=== PATIENT | female | born 1960 | race Caucasian/White ===

== ENCOUNTER 2017-11-16 07:30 | Inpatient (IN) | payer BC ==
--- NOTE | 2017-11-04 16:40 | HP ---
HISTORY AND PHYSICAL: DATE OF OFFICE VISIT: 11/03/17 DATE OF PROPOSED PROCEDURE: 11/16/17 SURGEON: Phyllis Soliman MD.* (DICTATED BY BRANDON BEDOYA) PROCEDURE: Right total knee arthroplasty CHIEF COMPLAINT: Right knee pain. HISTORY OF PRESENT ILLNESS: Ms. Maurer is a 57-year-old female with complaints of right knee pain. X-ray shows endstage osteoarthritis and she has failed conservative management. She has elected to proceed with a right total knee arthroplasty which is scheduled for 11/16/[address] Soliman. PAST MEDICAL HISTORY: Hypothyroidism, high cholesterol, hypertension and asthma. PAST SURGICAL HISTORY: Complete thyroidectomy, Robby fundoplication, C- section x2, kidney donor surgery, hysterectomy and right knee arthroscopy. MEDICATIONS: 1. Ventolin inhaler. 2. Levothyroxine 112 mcg daily. 3. Lorane thyroid 30 mg daily. 4. Losartan potassium 25 mg daily. 5. Atorvastatin calcium 25 mg q.h.s. 6. Probiotic. 7. Multivitamin. 8. Vitamin D3. 9. Cyclobenzaprine as needed. ALLERGIES: SULFA ANTIBIOTICS. FAMILY HISTORY: Coronary artery disease, COPD and stroke. SOCIAL HISTORY: She is a 57-year-old female lives with her . She does not smoke or use drugs; uses occasional alcohol. REVIEW OF SYSTEMS: A complete 14-point review of systems was reviewed with the patient, it is positive for hypothyroidism, asthma, and she donated a kidney last February. She denies history of DVT, hepatitis, HIV or anesthesia problems. PHYSICAL EXAMINATION GENERAL: She is well developed, well nourished, in no acute distress. VITAL SIGNS: She stands 5 feet 2 inches tall, weighs 173 pounds. Her blood pressure is 138/84, her heart rate is 60. HEENT: Normocephalic, atraumatic. NECK: Supple. No palpable lymph nodes. PULMONARY: The lungs are clear to auscultation. CARDIO: Regular rate and rhythm. Strong S1, S2. ABDOMEN: Soft, nontender, nondistended. NEUROLOGIC: She is alert and oriented x3. Cranial nerves II through XII are intact. MUSCULOSKELETAL: Right lower extremity, there is no open wounds or abrasions. There is a moderate joint effusion, she has some tenderness over the medial lateral joint line. Range of motion is 10 to 125 degrees with patellar femoral crepitus, no varus or valgus instability, 2+ dorsalis pedis pulses, 5/5 lower extremity strength and intact sensation. ASSESSMENT AND PLAN: Ms. Maurer is a 57-year-old female with complaints of right knee pain secondary to end-stage osteoarthritis. She has failed conservative management and elected to proceed with a right total knee arthroplasty which is scheduled for 11/16/[address] Soliman discussed the risks and benefits of the surgery at today's visit and all of her questions were answered. She will follow up with Dr. Soliman 2 weeks after the surgery. BRANDON BEDOYA [id number]/CPS #: [id number] MTDD
[~2017-11-16 07:30] MED LIST: Acetaminophen IV 1GM/100ML * 1,000 MG/100 ML VIAL IVPB ONE; Buffered Lidocaine 0.9% SYRIN* 5 ML/SYR SYRINGE INTRADERM ONE; Dexamethasone IV* 4 MG/ML 1 ML (4 MG) IV SLOW PU ONE; Famotidine IV* 10 MG/ML 2 ML (20 mg) IV ONE
[2017-11-16] MEDS ORDERED: Dexamethasone IV* 4 MG/ML 1 ML (4 MG) ONE (08:35)
[2017-11-16] MEDS ORDERED: Famotidine IV* 10 MG/ML 2 ML (20 mg) ONE (08:35)
[2017-11-16] MEDS ORDERED: ceFAZolin 2 GM PREMIX (*) 2 GM/50 ML BAG IVPB ONE (08:35)
[2017-11-16] MEDS ORDERED: Acetaminophen IV 1GM/100ML * 100 ML ONE (09:15)
[2017-11-16] MEDS ORDERED: Bupivacaine 0.5% SDV PF* 30ML VIAL ONE ×2 (09:25→10:36)
[2017-11-16] MEDS ORDERED: Ondansetron ODT TAB* 4 MG PO ONE (09:30)
[2017-11-16] MEDS ORDERED: Midazolam* 1 MG/ML 5 ML VIAL (5 MG) ONE ×2 (10:13→11:15)
[2017-11-16] MEDS ORDERED: Bupivacaine 0.5% PF 10 ML VIAL INJ ONE (10:13)
[2017-11-16] MEDS ORDERED: Lidocaine 0.5%* 50 ML SDV ONE (10:13)
[2017-11-16] MEDS ORDERED: fentaNYL* 50 MCG/ML 2 ML VIAL (100 MCG VIAL) ONE ×2 (10:13→17:27)
[2017-11-16] MEDS ORDERED: Propofol* 10 MG/ML 20 ML BTL IV PUSH ONE (10:13)
[2017-11-16] MEDS ORDERED: Ondansetron ODT TAB* 4 MG ONE (10:32)
[2017-11-16] MEDS ORDERED: ROPIVACAINE 5 MG/ML 30 ML BTL (0.5%) ONE (10:38)
[2017-11-16] MEDS ORDERED: oxyCODONE TAB* 5 MG TAB PO PRN (12:03)
[2017-11-16] MEDS ORDERED: Scopolamine 1.5 mg* PATCH TRANSDERM PRN (12:03)
[2017-11-16] MEDS ORDERED: Naloxone* 0.4 MG/ML 1 ML VIAL IV PRN (12:03)
[2017-11-16] MEDS ORDERED: HYDROmorphone INJ* 1 MG/ML CARPUJECT SYRINGE IV PRN (12:03)
[2017-11-16] MEDS ORDERED: fentaNYL* 50 MCG/ML 2 ML VIAL (100 MCG VIAL) IV PRN (12:03)
[2017-11-16] MEDS ORDERED: Ondansetron INJ* 2 MG/ML VIAL IV PRN ×2 (12:03→13:42)
[2017-11-16] MEDS ORDERED: DiMENhydriNATE IV* 50 MG/ML VIAL IV PUSH PRN (12:03)
[2017-11-16] MEDS ORDERED: Bisacodyl SUPP* 10 MG SUPP PR PRN (13:42)
[2017-11-16] MEDS ORDERED: Magnesium Hydroxide LIQ* 30 ML UDC PO PRN (13:42)
[2017-11-16] MEDS ORDERED: diPHENhydraMINE IV* 50 MG/ML 1 ml VIAL (BENADRYL) IV PRN (13:42)
--- NOTE | 2017-11-16 14:06 | RAD ---
HISTORY: Status post right knee arthroplasty COMPARISONS: October 11, 2017 VIEWS: 2, Frontal and lateral views of the right knee FINDINGS: BONE DENSITY: Normal. BONES: The patient is status post right knee arthroplasty. There is no hardware failure or osteolysis. JOINTS: The patient is status post right knee arthroplasty. ALIGNMENT: There is no dislocation. SOFT TISSUES: A surgical drain is noted OTHER FINDINGS: None. IMPRESSION: STATUS POST RIGHT KNEE ARTHROPLASTY
[2017-11-16] MEDS ORDERED: Warfarin TAB(*) 6 MG PO ONE ×2 (17:00→20:00)
[2017-11-16] MEDS ORDERED: oxyCODONE TAB* 5 MG TAB ONE (17:27)
[2017-11-16] MEDS ORDERED: Albuterol 2.5 MG/3 ML NEB.SOL* (0.083%) INH PRN (17:46)
[2017-11-16] MEDS: oxyCODONE/Acetamin 5/325 MG* TAB PO PRN (19:51)
[2017-11-16] MEDS: Atorvastatin* 20 MG TAB PO SCH (20:13)
[2017-11-16] MEDS: Morphine VIAL* 4 MG/ML VIAL (1 ml vial) IV PRN (21:24)
[2017-11-16] MEDS: ceFAZolin 1 GM in Dextrose (*) 1 GM/50 ML BAG IVPB SCH (21:30)
[2017-11-16] MEDS: Docusate CAP* 100 MG PO SCH (21:40)
[2017-11-16] MEDS: Gabapentin CAP(*) 100 MG PO SCH (21:40)
[2017-11-16] MEDS: Magnesium Hydroxide LIQ* 30 ML UDC PO SCH (21:40)
[2017-11-17] MEDS: oxyCODONE/Acetamin 5/325 MG* TAB PO PRN ×5 (03:23→21:26)
--- NOTE | 2017-11-17 03:51 | CONS ---
CC: Phyllis Soliman MD * CONSULTATION REPORT: DATE OF CONSULTATION: 11/16/17 CONSULTING PROVIDER: Phyllis Soliman MD MY ATTENDING WHILE IN THE HOSPITAL: Estrella Arreola DO REASON FOR CONSULTATION: Comanagement of comorbid medical conditions. HISTORY OF PRESENT ILLNESS: Ms. Maurer is a 57-year-old female with past medical history significant for hypothyroidism, status post complete thyroidectomy, hypertension, asthma, hyperlipidemia, GERD, status post Robby fundoplication, and osteoarthritis, who presents for a right total knee arthroplasty after failure of conservative treatment. The patient had an estimated blood loss of less than 200 mL intraop and had spinal anesthesia with a nerve block with delayed recovery in the motor function of her feet, which are now functioning. The patient is in currently a 3/10 pain when moving her quadriceps muscle on her right thigh, which she believes to be pain related to the incision. The patient had one episode of dizziness when moving around in bed, not kareen vertigo, but lightheadedness. This has not recurred. The patient has not had any recent falls or illnesses. The patient recently had her levothyroxine dose decreased to 88 mcg and her valsartan dose increased to 25 mg and had gabapentin started for neuropathic pain and hot flashes. The patient has not used her Ventolin inhaler recently and rarely ever has to use it. The patient denies any chest pain, shortness of breath, nausea, vomiting or abdominal pain. The patient has issues with chronic constipation. PAST MEDICAL HISTORY: Hypothyroidism, hyperlipidemia, hypertension, asthma, osteoarthritis, multinodular goiter, status post thyroidectomy, GERD, status post Robby fundoplication, low back pain with possible degenerative disk disease. PAST SURGICAL HISTORY: Complete thyroidectomy, Robby fundoplication, , kidney donor surgery with implantation of donor kidney, hysterectomy, and right knee arthroscopy. MEDICATIONS: 1. Ventolin inhaler 2 puffs inhalation q.4 hours as needed. 2. Levothyroxine 88 mcg p.o. daily. 3. Holdrege Thyroid pork 30 mg p.o. q.a.m. 4. Atorvastatin 20 mg p.o. q.h.s. 5. Losartan 25 mg p.o. daily. 6. Probiotic. 7. Multivitamin. 8. Vitamin D3 of 2000 units p.o. q.a.m. 9. Cyclobenzaprine 10 mg p.o. q.p.m. as needed. 10. Gabapentin 100 mg p.o. b.i.d. ALLERGIES: SULFA ANTIBIOTICS. FAMILY HISTORY: The patient's mother of stroke. The patient's father is alive and has coronary artery disease, COPD, and a pacemaker. The patient's brother has CLL. The patient's sister has gastroparesis. The patient's has another sister who is healthy. SOCIAL HISTORY: The patient is a 57-year-old female, lives with her . She does not smoke or use drugs. Uses occasional alcohol. 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 The patient's surrogate decision makers would be her , Timo Maurer or her daughter Marlee Pizarro. REVIEW OF SYSTEMS: A 14-point review of systems was reviewed and is negative except as above. PHYSICAL EXAM: General: The patient is a 57-year-old female who appears stated age and is sitting comfortably in the bed, in no acute distress. Vital Signs: Temperature 98.1, pulse rate 98, respiratory rate 21, oxygen saturation 95% on room air, blood pressure 113/85. HEENT: Head normocephalic, atraumatic. Sclerae anicteric. No conjunctival injection. Nasal mucosa moist. Oral mucosa moist. No pharyngeal erythema, discharge or exudate. Neck : Supple, nontender, no lymphadenopathy, no carotid bruits auscultated, and no JVD. Cardiac: Regular rate and rhythm. No clicks, murmurs, gallops or rubs. Pulses are 2+ in bilateral dorsalis pedis, posterior tibialis and radial areas. No tenderness in bilateral calves. No lower extremity edema noted. Respiratory: Clear to auscultation bilaterally. No wheezes, rales or rhonchi. Good air exchange bilaterally. Abdomen: Soft, nontender, nondistended. Bowel sounds present and hypoactive in all 4 quadrants. No hepatosplenomegaly. No abdominal bruits auscultated. Genitourinary: No suprapubic tenderness. Skin: Clean, dry, intact. No rash. Right knee incision covered by a bulky dressing with a hemovac drain producing bloody drainage. Neuro: Cranial nerves II through XII intact. Strength 5/5 in bilateral upper extremities, 4/5 strength in bilateral lower extremities, symmetrical bilaterally. Reflexes are 1+ in bilateral biceps, left side patellar and Achilles areas bilaterally. Psychiatric: Pleasant and cooperative. LABORATORY DATA: Preoperative white blood cell count 6.9, red blood cell count 4.1, hemoglobin 12.5, hematocrit 37, platelet count 232,000. INR 0.9, APTT 30.5. Sodium 139, potassium 4.2, chloride 103, carbon dioxide 30, anion gap 6, BUN 24, creatinine 1.18, glucose 89, calcium 9.5, bilirubin 0.5, AST 25, ALT 27 , alkaline phosphatase 74, protein 7.3, albumin 4.3, globulin 3.0, triglycerides 142, cholesterol 127, LDL cholesterol 56, HDL cholesterol 42.9. TSH 0.1. IMPRESSION AND PLAN: Ms. Maurer is a 57-year-old female with past medical history significant for hypertension, hypothyroidism due to complete thyroidectomy, asthma, and osteoarthritis, who presents for a right total knee arthroplasty and is stable postoperatively. 1. Postoperative state. Right total knee arthroplasty management per primary orthopedic team. The patient should have an aggressive bowel regimen due to her history of chronic constipation. The patient's pain is currently controlled. Pain control per primary team. Monitor hemoglobin and hematocrit. PT and OT. The patient requested home PT at discharge. 2. Hypertension. Though the patient is currently normotensive, we will continue fluids overnight and resume the patient's losartan in the morning with hold parameters. The ongoing need for this medication should be assessed outpatient as the patient's creatinine increased between 11/17/16 to 03/20/17 from 0.85 to 1.37 and stayed stable around 1.16 on the last two readings in 2018. If the patient was started on losartan for preservation of kidney function, this level of increase in creatinine is associated with poor outcomes and should be assessed. We will monitor creatinine while inpatient. 3. Hyperlipidemia. Continue atorvastatin. 4. Hypothyroidism. Continue levothyroxine and Holdrege Thyroid. The patient's TSH should be rechecked in 6 weeks after the recent decrease in levothyroxine dose. 5. Asthma. The patient will have a Ventolin nebulizer as needed while in the hospital. The patient should resume her Ventolin inhaler at home. 6. FEN. The patient will have regular unrestricted diet and fluids at 75 mL an hour. 7. DVT prophylaxis. Lovenox to warfarin per primary team. 8. Code status. The patient will be a full code. The patient's surrogate decision makers will be her , Timo Maurer and her daughter Marlee Pizarro as above. 9. Disposition. Per primary team. TIME SPENT: Approximately 60 minutes was spent on this consultation, 30 of which was spent [id number] with the patient obtaining history and physical and discussing treatment plan. Plan was discussed with my attending, Dr. Estrella Arreola, and she is in agreement. Thank you for this consultation. Feel free to call with any questions. BRANDON CISNEROS [id number]/CPS #: [id number] DIXON
[2017-11-17] MEDS: ceFAZolin 1 GM in Dextrose (*) 1 GM/50 ML BAG IVPB SCH ×2 (04:07→12:03)
[2017-11-17 06:09] LABS: Hematocrit 29 % (35-47); Hemoglobin 9.6 g/dl (12.0-16.0); Mean Platelet Volume 8.7 um3 (7.4-10.4); Platelet Count 180 10^3/ul (150-450)
[2017-11-17 06:14] LABS: INR 0.92 (0.77-1.02)
[2017-11-17 06:26] LABS: EGFR Non-African American 50.8 (>60)
[2017-11-17] MEDS: Docusate CAP* 100 MG PO SCH ×2 (08:50→21:27)
[2017-11-17] MEDS: Losartan TAB* 25 MG PO SCH (08:50)
[2017-11-17] MEDS: Gabapentin CAP(*) 100 MG PO SCH ×2 (08:50→21:27)
[2017-11-17] MEDS: Magnesium Hydroxide LIQ* 30 ML UDC PO SCH ×2 (08:51→21:28)
[2017-11-17] MEDS: Vitamin THERAPEUTIC TAB PO SCH (08:51)
[2017-11-17] MEDS: Enoxaparin(*) 30 MG/0.3 ML SYR SUBCUT SCH (11:40)
[2017-11-17] MEDS: oxyCODONE TAB* 5 MG TAB PO PRN ×2 (13:45→18:51)
--- NOTE | 2017-11-17 14:13 | PN ---
Subjective Date of Service: 11/17/17 Interval History: Patient is doing well, minimal pain at rest, significant pain up to 10/10 with activity. Able to ambulate with PT to the bathroom twice. Slight brief lightheadedness on standing without vertigo or presyncope. Patient denies F/C, N /V, abdominal pain, dysuria, CP, SOB. Patient has urinated and is passing flatus but no BM. Family History: Unchanged from Admission Social History: Unchanged from Admission Past Medical History: Unchanged from Admission Objective Active Medications: Albuterol (Ventolin 2.5 Mg/3 Ml Neb.Priscila*) 2.5 mg INH Q4H PRN PRN Reason: SOB/WHEEZING Atorvastatin Calcium (Lipitor*) 20 mg PO QPM [facility] Last Admin: 11/16/17 20:13 Dose: Not Given Bisacodyl (Dulcolax Supp*) [address] DAILY PRN PRN Reason: constipation Cyclobenzaprine HCl (Flexeril Tab*) 5 mg PO TID PRN PRN Reason: SPASMS Diphenhydramine HCl (Benadryl Iv*) 25 mg IV Q6H PRN PRN Reason: itching Docusate Sodium (Colace Cap*) 100 mg PO BID [facility] Last Admin: 11/17/17 08:50 Dose: 100 mg Enoxaparin Sodium (Lovenox(*)) 30 mg SUBCUT Q24H [facility] Last Admin: 11/17/17 11:40 Dose: 30 mg Gabapentin (Neurontin Cap(*)) 100 mg PO BID [facility] Last Admin: 11/17/17 08:50 Dose: 100 mg Lactated Ringer's (Lactated Ringers 1000 Ml Bag*) 1,000 mls @ 100 mls/hr IV PER RATE [facility] Last Admin: 11/17/17 04:05 Dose: 100 mls/hr Lactulose (Lactulose*) 30 ml PO Q6H PRN PRN Reason: constipation Losartan Potassium (Cozaar Tab*) 25 mg PO DAILY [facility] Last Admin: 11/17/17 08:50 Dose: 25 mg Magnesium Hydroxide (Milk Of Magnesia Liq*) 30 ml PO BID [facility] Last Admin: 11/17/17 08:51 Dose: 30 ml Magnesium Hydroxide (Milk Of Magnesia Liq*) 30 ml PO Q6H PRN PRN Reason: constipation Morphine Sulfate (Morphine Vial*) 2 mg IV Q2H PRN PRN Reason: PAIN - UNCONTROLLED Last Admin: 11/16/17 21:24 Dose: 2 mg Multivitamins (Theragran Tab*) 1 tab PO DAILY [facility] Last Admin: 11/17/17 08:51 Dose: 1 tab Ondansetron HCl (Zofran Inj*) 4 mg IV Q6H PRN PRN Reason: nausea Oxycodone HCl (Roxycodone Tab*) 10 mg PO Q4H PRN PRN Reason: PAIN - SEVERE Last Admin: 11/17/17 13:45 Dose: 10 mg Oxycodone/Acetaminophen (Percocet 5/325 Tab*) 2 tab PO Q4H PRN PRN Reason: PAIN Last Admin: 11/17/17 11:39 Dose: 2 tab Oxycodone/Acetaminophen (Percocet 5/325 Tab*) 1 tab PO Q4H PRN PRN Reason: PAIN Pharmacy Profile Note (Coumadin Daily Reminder*) 1 note FOLLOW UP 1700 [facility] Pharmacy Profile Note (Scopolamine Patch Remove*) 1 note PATCH OFF Q72H [facility] Scopolamine (Transderm-Scop 1.5 Mg Patch*) 1 patch TRANSDERM Q72H PRN PRN Reason: Nausea/Vomiting Vital Signs - 8 hr 11/17/17 11/17/17 11/17/17 07:15 07:34 07:41 Temperature 97.7 F Pulse Rate 77 Respiratory 16 18 18 Rate Blood Pressure 119/59 (mmHg) O2 Sat by Pulse 100 100 Oximetry 11/17/17 11/17/17 11/17/17 08:50 10:10 11:21 Temperature 96.8 F Pulse Rate 73 Respiratory 18 16 16 Rate Blood Pressure 132/78 (mmHg) O2 Sat by Pulse 100 Oximetry 11/17/17 11/17/17 11/17/17 11:23 11:39 13:45 Temperature Pulse Rate Respiratory 18 18 18 Rate Blood Pressure (mmHg) O2 Sat by Pulse Oximetry 11/17/17 13:47 Temperature Pulse Rate Respiratory 18 Rate Blood Pressure (mmHg) O2 Sat by Pulse Oximetry Oxygen Devices in Use Now: None Appearance: Patient is a 57yo female who appears stated age and is sitting in the bed in [facility]. Eyes: No Scleral Icterus, PERRLA Ears/Nose/Mouth/Throat: NL Teeth, Lips, Gums, Clear Oropharnyx, Mucous Membranes Moist Neck: NL Appearance and Movements; NL JVP, Trachea Midline Respiratory: Symmetrical Chest Expansion and Respiratory Effort, Clear to Auscultation Cardiovascular: NL Sounds; No Murmurs; No JVD, RRR, No Edema Abdominal: NL Sounds; No Tenderness; No Distention, No Hepatosplenomegaly Lymphatic: No Cervical Adenopathy Extremities: No Edema, No Clubbing, Cyanosis Skin: No Nodules or Sclerosis, - - Right knee dressing CDI. Neurological: Alert and Oriented x 3, NL Sensation, NL Muscle Strength and Tone , - - CN II-XII intact. Result Diagrams: 11/17/17 05:28 11/17/17 05:28 Assess/Plan/Problems-Billing Assessment: Patient is a 57yo female with a PMH significant for HTN, hypothyroidism, who is S/P RTKA and is doing well. - Patient Problems (1) Post-operative state Current Visit: Yes Status: Acute Code(s): Z98.890 - OTHER SPECIFIED POSTPROCEDURAL STATES SNOMED Code(s): 85647646 Comment: POD#1 from RTKA. Management per Ortho. H/H stable. Vizcaino removed without retention. Passing flatus. Moderate pain control. PT/OT (2) Hypertension Current Visit: Yes Status: Acute Code(s): I10 - ESSENTIAL (PRIMARY) HYPERTENSION SNOMED Code(s): 33340128 Comment: Normotensive on home losartan. Will check orthostatics. (3) Hypothyroidism Current Visit: Yes Status: Acute Code(s): E03.9 - HYPOTHYROIDISM, UNSPECIFIED SNOMED Code(s): 73143624 Comment: Continue levothyroxine at home dose. Will need repeat outpatient due to dose change and overmedication. (4) Hyperlipidemia Current Visit: Yes Status: Acute Code(s): E78.5 - HYPERLIPIDEMIA, UNSPECIFIED SNOMED Code(s): 95515134 Comment: Continue lipitor. (5) Asthma Current Visit: Yes Status: Acute Code(s): J45.909 - UNSPECIFIED ASTHMA, UNCOMPLICATED SNOMED Code(s): 990419715 Comment: Albuterol PRN. No signs of exacerbation. (6) DVT prophylaxis Current Visit: Yes Status: Acute Code(s): HMD1092 - SNOMED Code(s): 088607856 Comment: Lovenox to warfarin per Ortho. Status and Disposition: Disposition per Ortho.
--- NOTE | 2017-11-17 15:18 | OP ---
DATE OF OPERATION: 11/16/17 - ROOM #[id number] DATE OF : 56 ATTENDING SURGEON: Phyllis Soliman MD. FUND CONTROLLER: BRANDON Orta. Mr. Ivan did help throughout the procedure with preparation of the leg, wound retraction, manipulation of the knee, and wound closure. ANESTHESIOLOGIST: Dr. Astudillo. ANESTHESIA: Spinal. PRE-OP DIAGNOSIS: Severe endstage degenerative osteoarthritis of the right knee joint. POST-OP DIAGNOSIS: Severe endstage degenerative osteoarthritis of the right knee joint. OPERATIVE PROCEDURE: Right total knee arthroplasty. TOURNIQUET TIME: 46 minutes. COMPLICATIONS: None. ESTIMATED BLOOD LOSS: 300 cc. SPECIMEN: Bone and cartilage from the right knee joint sent to Pathology. HARDWARE USED: This is cemented total knee [employer] hardware. Two packages of Simplex bone cement. For the femur, a size 4 right narrow posterior stabilized Legion Oxinium femoral component. For the tibia, a size 3 right tibial base plate Jeri II. For the insert, an 11-mm posterior stabilized articular insert, size 3-4. For the patella, a 29-mm 3-peg all-poly patella with 7.5 thickness. BRIEF HISTORY/INDICATION: Ms. Maurer is a 57-year-old female with 1 year of increasingly severe right knee pain. Radiographs showed [id number] arthritis. Radiographs showed significant arthritis in both the medial and patello-femoral compartments. She failed conservative treatment with antiinflammatories, pain medications, and physical therapy. Due to continued pain and decreased quality of life, she elected to undergo right total knee arthroplasty. Informed consent was obtained from the patient. She understood the risks of surgery included but were not limited to bleeding, infection, damage to nearby structures, continued pain, need for further surgery, intraoperative fracture, nerve palsy, hardware failure or loosening, knee stiffness, loss of motion, stroke, heart attack, blood clot, and . She wished to proceed. INTRAOPERATIVE FINDINGS: Intraoperatively, the patient was noted to have tricompartmental degenerative osteoarthritis. This was worst in the medial and patellofemoral compartments with full-thickness loss of cartilage. DESCRIPTION OF PROCEDURE: Ms. Maurer was identified in the preanesthesia unit. Her right lower extremity was marked as the correct operative side. Informed consent was signed and placed in the chart. The patient was taken to the operating room and placed under spinal anesthesia. A Vizcaino catheter was placed. Tourniquet was placed on the right thigh. Right lower extremity was prepped and draped in the usual sterile fashion. Preop time-out was made to correctly identify the patient, side, and site. Appropriate perioperative antibiotics were given within 1 hour of incision. Tourniquet was inflated and the total tourniquet time for this procedure was 46 minutes. A 12-cm midline incision was made with a 10 blade and carried down to the extensor mechanism. A new 10 blade was used to make a standard medial parapatellar arthrotomy. The patella was subluxed laterally. Electrocautery was used to subperiosteally elevate the soft tissue off the superomedial tibia to the mid sagittal plane. The knee was flexed up. The anterior horn of the lateral meniscus and ACL were sharply released. A drill was used to enter the distal femur. Intramedullary distal femoral cutting guide was pinned on the distal femur. Oscillating saw was used to make the distal femoral cut. Next, the external rotation guide was pinned on the distal femur. Distal femur was sized to a size 4. Size 4 multi-cutting jig was pinned on the distal femur. Oscillating saw was used to make the appropriate 4 chamfer cuts. The PCL was completely released. The tibia was subluxed anteriorly. The extramedullary tibial cutting guide was pinned on the proximal tibia. Oscillating saw was used to make the proximal tibial cut perpendicular to the mechanical axis of the tibia. The bone was carefully removed. The knee was brought out into full extension. A spacer block had excellent fit. Medial and lateral ligaments were well balanced. Flexion and extension gaps were well balanced. Lamina network professional was placed both medially and laterally. Any remaining meniscus was removed using electrocautery. Curved osteotome was used to remove any posterior osteophytes. The tibial tray and drop farrah were placed to once again confirm a satisfactory tibial cut and this was confirmed. A size 4 narrow right femoral trial was impacted onto the distal femur and had excellent fit. The box for the posterior stabilized implant was prepared using a reamer and box cut osteotome. Size 3 tibial tray with a 9-mm insert trial was placed and the knee was taken through range of motion. The knee had full extension to 130 degrees of flexion. Patello-femoral tracking was satisfactory. The patella was everted. 7 mm of patellar bone and cartilage was carefully removed using an oscillating saw. Patella was sized to a size 29. Three peg holes were drilled through the size 29 guide. A 29 trial patella with 7.5 thickness was placed and the knee was taken through range of motion. There was satisfactory patellofemoral tracking. All trials were removed. The tibia was subluxed anteriorly and sized to a size 3. Proximal tibia was prepared using a size 3 keel punch. All bony cut surfaces were copiously irrigated with sterile saline and dried. Final implants were cemented into place starting with the tibia, followed by the femur and last, the patella. An 11-mm insert trial was placed while the knee was brought out into full extension. Tourniquet was turned down at 46 minutes. The knee was copiously irrigated and electrocautery was used to obtain meticulous hemostasis. Once the cement had fully cured, the insert trial was removed. Any excess cement was removed from around the implants and capsule. Final insert chosen was an 11-mm posterior stabilized articular insert, size 3- 4. This was locked into position on the tibial tray. Stability of the insert was checked and rechecked and noted to be stable. The knee was copiously irrigated with sterile saline. The extensor mechanism was closed over a medium Hemovac drain using interrupted #1 Vicryls. The rest of the incision was closed in a layered fashion using 0 and 2-0 Vicryls. Skin was closed using running 3-0 nylon suture. Sterile Xeroform, 4x4s, and Webril were used to cover the incision. Cold pack and Bryant were placed over this. The patient's anesthesia was reversed without difficulty. She was taken to the PACU in stable condition. Intended weightbearing will be weightbearing as tolerated. Intended DVT prophylaxis will be Coumadin with a Lovenox bridge. [id number]/[facility] #: [id number] DIXON
[2017-11-17] MEDS: Morphine VIAL* 4 MG/ML VIAL (1 ml vial) IV PRN ×2 (16:14→20:23)
--- NOTE | 2017-11-17 16:29 | PN ---
Progress Note - Progress Note Date of Service: 11/17/17 SOAP: Subjective: []Patient seen OOB in chair. Knee pain is well controlled and no leg numbness. Denies CP, SOB, dizziness. Objective: [] Vital Signs Temp 97.5 F 11/17/17 15:29 Pulse 78 11/17/17 15:29 Resp 18 11/17/17 16:18 BP 109/68 11/17/17 15:29 Pulse Ox 100 11/17/17 16:00 Intake & Output 11/16/17 11/17/17 11/17/17 18:59 06:59 18:59 Intake Total 2049 3040 1040 Output Total 950 1850 800 Balance 1100 1190 240 Weight 170 lb Intake: IV Fluids 2049 980 391 LR 2000 980 391 NS 100ML, Cefazolin 2G 50 IVPB 110 49 ABX - CEFAZOLIN 110 49 Oral 1950 600 Output: Urine 800 Vizcaino 950 1850 Other: Estimated Blood Loss <200 Comment Laboratory Last Values Hgb 9.6 g/dl (12.0-16.0) L 11/17/17 05:28 Hct 29 % (35-47) L 11/17/17 05:28 Plt Count 180 10^3/ul (150-450) 11/17/17 05:28 MPV 8.7 um3 (7.4-10.4) 11/17/17 05:28 INR (Anticoag Therapy) 0.92 (0.77-1.02) 11/17/17 05:28 Sodium 138 mmol/L (139-145) L 11/17/17 05:28 Potassium 4.1 mmol/L (3.5-5.0) 11/17/17 05:28 Chloride 106 mmol/L (101-111) 11/17/17 05:28 Carbon Dioxide 28 mmol/L (22-32) 11/17/17 05:28 Anion Gap 4 mmol/L (2-11) 11/17/17 05:28 BUN 17 mg/dL (6-24) 11/17/17 05:28 Creatinine 1.10 mg/dL (0.51-0.95) H 11/17/17 05:28 Est GFR ( Amer) 65.4 (>60) 11/17/17 05:28 Est GFR (Non-Af Amer) 50.8 (>60) 11/17/17 05:28 BUN/Creatinine Ratio 15.5 (8-20) 11/17/17 05:28 Glucose 119 mg/dL (70-100) H 11/17/17 05:28 Calcium 8.7 mg/dL (8.6-10.3) 11/17/17 05:28 General: Well appearing, NAD RLE: Right knee dressing CDI without surrounding erythema. Drain pulled with tip intact and tolerated well by patient. Thigh is soft. DF/PF intact. DP 2+. Sensation intact to light touch distally. BL LE without erythema, edema or palpable cords. Assessment: []POD 1 sp right total knee arthroplasty 11/16 Dr Soliman Plan: []WBAT PT/OT Lovenox bridge to coumadin. Coumadin 6 mg today
[2017-11-17] MEDS: Warfarin TAB(*) 6 MG PO ONE ×2 (17:24→17:26)
[2017-11-17] MEDS: Atorvastatin* 20 MG TAB PO SCH (17:24)
[2017-11-18] MEDS ORDERED: Calcium Carbonate CHEW TAB* 500 MG (TUMS) PO PRN (00:17)
[2017-11-18] MEDS: oxyCODONE/Acetamin 5/325 MG* TAB PO PRN ×4 (02:37→14:17)
[2017-11-18] MEDS ORDERED: Ondansetron SYRINGE* 4 MG/2 ML SYRINGE (from 40mg/20ml vial) IV PRN (03:00)
[2017-11-18] MEDS: oxyCODONE TAB* 5 MG TAB PO PRN ×3 (05:27→17:44)
[2017-11-18 07:20] LABS: Hematocrit 28 % (35-47); Hemoglobin 9.6 g/dl (12.0-16.0); Mean Platelet Volume 8.2 um3 (7.4-10.4); Platelet Count 174 10^3/ul (150-450)
[2017-11-18] MEDS: Cyclobenzaprine TAB* 10 MG PO PRN ×2 (07:28→20:53)
[2017-11-18 07:29] LABS: INR 1.6 (0.77-1.02)
[2017-11-18] MEDS: Morphine TAB Extended Release (*) 30 MG TAB.ER PO SCH ×2 (07:52→20:54)
[2017-11-18] MEDS: Magnesium Hydroxide LIQ* 30 ML UDC PO SCH ×2 (08:36→20:46)
[2017-11-18] MEDS: Losartan TAB* 25 MG PO SCH (08:36)
[2017-11-18] MEDS: Docusate CAP* 100 MG PO SCH ×2 (08:36→20:45)
[2017-11-18] MEDS: Vitamin THERAPEUTIC TAB PO SCH (08:37)
[2017-11-18] MEDS: Gabapentin CAP(*) 100 MG PO SCH ×2 (08:38→20:54)
[2017-11-18] MEDS: Thyroid TAB* 30 MG PO SCH (11:32)
[2017-11-18] MEDS: Levothyroxine TAB* 88 MCG TAB PO SCH (12:25)
[2017-11-18] MEDS: Enoxaparin(*) 30 MG/0.3 ML SYR SUBCUT SCH (12:25)
[2017-11-18] MEDS ORDERED: Ondansetron 40 MG VIAL* 2 MG/ML 20 ML VIAL IV PRN (13:00)
--- NOTE | 2017-11-18 15:34 | PN ---
Progress Note - Progress Note Date of Service: 11/18/17 SOAP: Subjective: [] Patient seen at bedside. Her pain is better controlled with the addition of long acting morphine. Denies chest pain, shortness of breath, dizziness or nausea. Objective: [] Laboratory Last Values Hgb 9.6 g/dl (12.0-16.0) L 11/18/17 07:07 Hct 28 % (35-47) L 11/18/17 07:07 Plt Count 174 10^3/ul (150-450) 11/18/17 07:07 MPV 8.2 um3 (7.4-10.4) 11/18/17 07:07 INR (Anticoag Therapy) 1.60 (0.77-1.02) H 11/18/17 07:07 Sodium 138 mmol/L (139-145) L 11/17/17 05:28 Potassium 4.1 mmol/L (3.5-5.0) 11/17/17 05:28 Chloride 106 mmol/L (101-111) 11/17/17 05:28 Carbon Dioxide 28 mmol/L (22-32) 11/17/17 05:28 Anion Gap 4 mmol/L (2-11) 11/17/17 05:28 BUN 17 mg/dL (6-24) 11/17/17 05:28 Creatinine 1.10 mg/dL (0.51-0.95) H 11/17/17 05:28 Est GFR ( Amer) 65.4 (>60) 11/17/17 05:28 Est GFR (Non-Af Amer) 50.8 (>60) 11/17/17 05:28 BUN/Creatinine Ratio 15.5 (8-20) 11/17/17 05:28 Glucose 119 mg/dL (70-100) H 11/17/17 05:28 Calcium 8.7 mg/dL (8.6-10.3) 11/17/17 05:28 Temp Pulse Resp BP Pulse Ox 97.6 F 77 16 124/81 96 11/18/17 15:19 11/18/17 15:19 11/18/17 15:19 11/18/17 15:19 11/18/17 15:19 General: Well appearing, NAD RLE: Right knee dressing CDI without surrounding erythema. Dressing changed by Dr. Soliman this morning without complication. Thigh is soft. DF/PF intact. DP 2+ . Sensation intact to light touch distally. B/L LE without erythema, edema or palpable cords. Assessment: []POD 2 s/p right total knee arthroplasty 11/16 Dr Soliman Plan: []WBAT PT/OT Lovenox bridge to coumadin. Coumadin 4 mg today Required long acting morphine for pain control D/C home tomorrow
[2017-11-18] MEDS ORDERED: Warfarin TAB(*) 4 MG PO ONE (17:00)
[2017-11-18] MEDS: Atorvastatin* 20 MG TAB PO SCH (17:44)
[2017-11-19] MEDS: oxyCODONE TAB* 5 MG TAB PO PRN (00:02)
[2017-11-19] MEDS: oxyCODONE/Acetamin 5/325 MG* TAB PO PRN ×3 (03:36→13:07)
[2017-11-19 05:10] LABS: Hematocrit 28 % (35-47); Hemoglobin 9.6 g/dl (12.0-16.0); Mean Platelet Volume 8.1 um3 (7.4-10.4); Platelet Count 185 10^3/ul (150-450)
[2017-11-19 05:15] LABS: INR 2.07 (0.77-1.02)
[2017-11-19] MEDS: Levothyroxine TAB* 88 MCG TAB PO SCH (05:49)
[2017-11-19] MEDS: Gabapentin CAP(*) 100 MG PO SCH (07:36)
[2017-11-19] MEDS: Magnesium Hydroxide LIQ* 30 ML UDC PO SCH (07:36)
[2017-11-19] MEDS: Thyroid TAB* 30 MG PO SCH (07:55)
[2017-11-19] MEDS: Morphine TAB Extended Release (*) 30 MG TAB.ER PO SCH (07:55)
[2017-11-19] MEDS: Docusate CAP* 100 MG PO SCH (07:55)
[2017-11-19] MEDS: Losartan TAB* 25 MG PO SCH (07:55)
[2017-11-19] MEDS: Vitamin THERAPEUTIC TAB PO SCH (07:56)
[2017-11-19] MEDS ORDERED: Scopolamine PATCH Remove* 1 NOTE MISC PATCH OFF SCH (12:00)
--- NOTE | 2017-11-19 12:15 | PN ---
Progress Note - Progress Note Date of Service: 11/19/17 SOAP: Subjective: 57 y/o female s/p R TKA by Jourdan Hurt 11/16/2017. Patient doing well, reports pain much improved today, continues on long acting, a bit "groggy" when wakes in AM . VSS, afebrile overnight. Objective: General- Well appearing, NAD, AO, resting in chair comfortably. MSK- RLE- DF/PF = b/l, PT 2+, negative homans sign, SITLT, dressing removed, incision c/d/i, minimal erythema around incision, redressed without difficulty. minimal edema noted. Vital Signs Temp 98.9 F 11/19/17 07:28 Pulse 95 11/19/17 07:28 Resp 16 11/19/17 07:56 BP 123/77 11/19/17 07:28 Pulse Ox 95 11/19/17 07:28 Intake & Output 11/18/17 11/19/17 11/19/17 18:59 06:59 18:59 Intake Total 270 1090 Output Total 300 700 250 Balance -30 390 -250 Intake: Oral 270 1090 Output: Urine 300 700 250 Other: Estimated Void Medium Date of Last Bowel 11/18/17 Movement Estimated Stool Amount Small # Voids 1 Assessment: Stable 57 y/o female s/p R TKA by Jourdan Hurt 11/16/2017. Plan: - DVT prophylaxis- lovenox, coumadin - INR 2.07 today - Continue PT/ OT - Follow up with Dr. Soliman within 10-14 days - H&H - stable - post-op IV ABX - Completed - Continue current pain regimen- patient educated to continue to titrate short acting medication to avoid over sedation - D/C to home today Albuterol (Ventolin 2.5 Mg/3 Ml Neb.Priscila*) 2.5 mg INH Q4H PRN PRN Reason: SOB/WHEEZING Atorvastatin Calcium (Lipitor*) 20 mg PO QPM CASEY Last Admin: 11/18/17 17:44 Dose: 20 mg Bisacodyl (Dulcolax Supp*) 10 mg MI DAILY PRN PRN Reason: constipation Calcium Carbonate (Tums*) 500 mg PO BID PRN PRN Reason: HEARTBURN Last Admin: 11/18/17 02:36 Dose: 500 mg Cyclobenzaprine HCl (Flexeril Tab*) 5 mg PO TID PRN PRN Reason: SPASMS Last Admin: 11/18/17 20:53 Dose: 5 mg Diphenhydramine HCl (Benadryl Iv*) 25 mg IV Q6H PRN PRN Reason: itching Docusate Sodium (Colace Cap*) 100 mg PO BID [facility] Last Admin: 11/19/17 07:55 Dose: 100 mg Enoxaparin Sodium (Lovenox(*)) 30 mg SUBCUT Q24H [facility] Last Admin: 11/18/17 12:25 Dose: 30 mg Gabapentin (Neurontin Cap(*)) 100 mg PO BID [facility] Last Admin: 11/19/17 07:36 Dose: Not Given Lactated Ringer's (Lactated Ringers 1000 Ml Bag*) 1,000 mls @ 100 mls/hr IV PER RATE [facility] Last Admin: 11/17/17 04:05 Dose: 100 mls/hr Lactulose (Lactulose*) 30 ml PO Q6H PRN PRN Reason: constipation Levothyroxine Sodium (Synthroid Tab*) 88 mcg PO DAILY@0600 [facility] Last Admin: 11/19/17 05:49 Dose: 88 mcg Losartan Potassium (Cozaar Tab*) 25 mg PO DAILY [facility] Last Admin: 11/19/17 07:55 Dose: 25 mg Magnesium Hydroxide (Milk Of Magnesia Liq*) 30 ml PO BID [facility] Last Admin: 11/19/17 07:36 Dose: Not Given Magnesium Hydroxide (Milk Of Magnesia Liq*) 30 ml PO Q6H PRN PRN Reason: constipation Morphine Sulfate (Morphine Vial*) 2 mg IV Q2H PRN PRN Reason: PAIN - UNCONTROLLED Last Admin: 11/17/17 20:23 Dose: 2 mg Morphine Sulfate (Ms Contin(*)) 30 mg PO Q12H [facility] Last Admin: 11/19/17 07:55 Dose: 30 mg Multivitamins (Theragran Tab*) 1 tab PO DAILY [facility] Last Admin: 11/19/17 07:56 Dose: Not Given Ondansetron HCl (Zofran 40 Mg Vial*) 4 mg IV Q6H PRN PRN Reason: nausea Oxycodone HCl (Roxycodone Tab*) 10 mg PO Q4H PRN PRN Reason: PAIN - SEVERE Last Admin: 11/19/17 00:02 Dose: 10 mg Oxycodone/Acetaminophen (Percocet 5/325 Tab*) 2 tab PO Q4H PRN PRN Reason: PAIN Last Admin: 11/19/17 03:36 Dose: 2 tab Oxycodone/Acetaminophen (Percocet 5/325 Tab*) 1 tab PO Q4H PRN PRN Reason: PAIN Last Admin: 11/19/17 07:56 Dose: 1 tab Pharmacy Profile Note (Coumadin Daily Reminder*) 1 note FOLLOW UP 1700 [facility] Last Admin: 11/18/17 17:45 Dose: 1 note Pharmacy Profile Note (Scopolamine Patch Remove*) 1 note PATCH OFF Q72H [facility] Scopolamine (Transderm-Scop 1.5 Mg Patch*) 1 patch TRANSDERM Q72H PRN PRN Reason: Nausea/Vomiting Thyroid (Thyroid Tab*) 30 mg PO DAILY [facility] Last Admin: 11/19/17 07:55 Dose: 30 mg
[2017-11-19] MEDS: Enoxaparin(*) 30 MG/0.3 ML SYR SUBCUT SCH (12:20)
[2017-11-19 12:25] VITALS: BP 118/74
--- NOTE | 2017-11-23 08:36 | DS ---
DISCHARGE SUMMARY: DATE OF ADMISSION: 11/16/17 DATE OF DISCHARGE: 11/19/17 ATTENDING PHYSICIAN: Dr. Soliman * (DICTATED BY BRANDON MICHAEL) CHIEF COMPLAINT: 1. Right knee pain. 2. Hypothyroidism. 3. Elevated cholesterol. 4. Hypertension. 5. Asthma. DISCHARGE DIAGNOSES: 1. Right total knee arthroplasty. 2. Hypothyroidism. 3. Elevated cholesterol. 4. Hypertension. 5. Asthma. PROCEDURE: On 11/16/17, right total knee arthroplasty. CONSULTATIONS: 1. Physical Therapy. 2. Occupational Therapy. 3. Medicine. BRIEF HISTORY: Ms. Maurer is a pleasant, 57-year-old female with a longstanding history of degenerative joint disease of her right knee, who failed conservative treatment and elected to undergo right total knee arthroplasty by Dr. Phyllis Soliman on 11/16/17. HOSPITAL COURSE: The patient was admitted to [facility] on 11/16/17 where she underwent an uncomplicated right total knee arthroplasty with an estimated blood loss of 300 cc. Postoperatively, the patient recovered on the surgical short stay unit. Her Vizcaino was removed on postoperative day 2 and she was voiding on her own without difficulty. Her pain is controlled with p.o. Percocet and morphine 30 mg extended release tablet. Her DVT prophylaxis was managed with Lovenox and Coumadin. She was able to weight bear as tolerated on the right lower extremity and advance appropriately with physical therapy. She was deemed appropriate for discharge to home with home services and Orthopedics deemed her stable for discharge. DISCHARGE MEDICATIONS: 1. Coumadin 2 mg 1 to 3 tablets every day at 5 p.m. per physician's instructions. 2. Troutman Thyroid 30 mg p.o. q.a.m. 3. Percocet 5/325 mg one-half to 2 tablets every 4 to 6 hours as needed for pain. 4. Multivitamin 1 tablet p.o. daily. 5. Morphine extended release tablet 30 mg p.o. q. 12 hours. 6. Cozaar 50 mg p.o. q. a.m. 7. Synthroid 88 mcg p.o. daily. 8. Probiotic 1 tablet p.o. with meals. 9. Gabapentin 100 mg p.o. b.i.d. 10. Colace 100 mg p.o. b.i.d. 11. Flexeril 10 mg p.o. q. p.m. for pain and muscle spasm. 12. Vitamin D3 at 2000 international units p.o. q. a.m. 13. Lipitor 20 mg p.o. q. p.m. 14. Ventolin HFA inhaler 2 puffs inhaled every 4 hours p.r.n. for wheezing. PHYSICAL EXAMINATION: General: Well appearing, no acute distress, alert and oriented, resting in chair comfortably. Vital Signs: Temperature 98.9, pulse 95, respirations 16, blood pressure 123/77, pulse oxygenation 97% on room air. Musculoskeletal: Examination of the right lower extremity showed dorsiflexion and plantar flexion were equal bilaterally with posterior tibial pulse 1+. Negative Homans sign. Sensation was intact to light touch. The dressing was removed. The incision was clean, dry, and intact with no erythema around the incision, re- dressed without difficulty. Minimal edema noted. LABORATORY DATA ON DATE OF DISCHARGE: Include an H and H of 9.6 and 28 with an INR of 2.07. CONDITION ON DISCHARGE: Stable. DISCHARGE INSTRUCTIONS: The patient was discharged to home and will have home VNS services who will draw INR draws on Wednesday and . The patient was told on 11/19/17 to take 2 mg, 11/20/17 to take 4 mg, 11/21/17 to take 2 mg with an INR check on 11/22/17. She will continue her physical therapy exercises as well as home physical therapy. She will remain weightbearing as tolerated of her right lower extremity. Her pain will be controlled with extended release morphine 30 mg b.i.d. and Percocet as needed for pain control. She will take Colace up to three times a day for constipation and will take a laxative if she has not had a bowel movement in 48 hours. She will follow up with Dr. Soliman in approximately 10 to 14 days for incision check and suture removal. She will go to the ER if she develops chest pain or shortness of breath. If she should have fever, increasing pain or redness, she is to call the office immediately. BRANDON MICHAEL [id number]/[facility] #: [id number] [place]
== END 2017-11-19 13:45 | disposition home health service (06) | DRG 302 ==
LOC: AA 08:21 → SSU 18:20
PROVIDERS: ADMIT Orthopaedic Surgery Adult Reconstructive Orthopaedic Surgery; ATTEND Orthopaedic Surgery Adult Reconstructive Orthopaedic Surgery
PROC: 0SRC069 Replacement of Right Knee Joint with Oxidized Zirconium on Polyethylene Synthetic Substitute, Cemented, Open Approach (ICD-10-PCS; principal; 2017-11-16 10:30)
DX: M17.11 Unilateral primary osteoarthritis, right knee (principal); E78.00 Pure hypercholesterolemia, unspecified; I10 Essential (primary) hypertension; K64.8 Other hemorrhoids; J45.20 Mild intermittent asthma, uncomplicated; E66.09 Other obesity due to excess calories; M25.461 Effusion, right knee; E78.2 Mixed hyperlipidemia; E55.9 Vitamin D deficiency, unspecified; K21.9 Gastro-esophageal reflux disease without esophagitis; M25.761 Osteophyte, right knee; E89.0 Postprocedural hypothyroidism; Z90.710 Acquired absence of both cervix and uterus; Z72.89 Other problems related to lifestyle; Z52.4 Kidney donor; Z82.49 Family history of ischemic heart disease and other diseases of the circulatory system; Z82.5 Family history of asthma and other chronic lower respiratory diseases; Z82.3 Family history of stroke; Z88.2 Allergy status to sulfonamides; Z68.31 Body mass index [BMI] 31.0-31.9, adult; Z79.01 Long term (current) use of anticoagulants
CPT/HCPCS: 36415; 80048; 85014; 85018; 85049; 85610; 88305; 88311; A9270-GY; C1776; G8987-GO-CI; G8988-GO-CI; G8989-GO-CI; J0690; J1100; J1650; J2250; J2270; J2405; J2704; J2795; J3010

== ENCOUNTER 2018-01-25 05:59 | Day surgery (SDC) | payer BC ==
--- NOTE | 2018-01-21 21:04 | HP ---
HISTORY AND PHYSICAL: DATE OF ADMISSION/SURGERY: 01/25/18 DATE OF OFFICE VISIT: 01/19/18 SURGEON: Phyllis Soliman MD * (DICTATED BY BRANDON BEDOYA) PROCEDURE: Manipulation under anesthesia of right total knee arthroplasty. CHIEF COMPLAINT: Right knee stiffness. HISTORY OF PRESENT ILLNESS: Ms. Maurer is a 57-year-old female. She underwent a right total knee arthroplasty on 11/16/17. She has recurrent stiffness and she has elected to proceed with manipulation under anesthesia of her right total knee arthroplasty. PAST MEDICAL HISTORY: Hypothyroidism, high cholesterol, hypertension and asthma. PAST SURGICAL HISTORY: Complete thyroidectomy, Robby fundoplication, C- section x2, kidney donor surgery, hysterectomy, right knee arthroscopy, right total knee replacement. CURRENT MEDICATIONS: 1. Ventolin inhaler. 2. Levothyroxine 112 mcg daily. 3. Edon Thyroid 30 mg daily. 4. Losartan potassium 25 mg daily. 5. Atorvastatin calcium 25 mg q.h.s. 6. Probiotic. 7. Multivitamin. 8. Vitamin D3. 9. Cyclobenzaprine 2 to 3 tabs daily as needed. ALLERGIES: To SULFA ANTIBIOTICS. FAMILY HISTORY: Coronary artery disease, COPD, and stroke. SOCIAL HISTORY: She is a 57-year-old female, she lives with her . She does not smoke or use drugs and uses occasional alcohol. REVIEW OF SYSTEMS: A complete 14-point review of systems was reviewed with the patient. It is positive for hypothyroidism, asthma, and she donated a kidney last February. She denies history of DVT, hepatitis, HIV, or anesthesia problems. PHYSICAL EXAMINATION GENERAL: She is well developed, well nourished, in no acute distress. VITAL SIGNS: She stands 62 inches tall, weighs 167 pounds. Her blood pressure is 126/88 and her heart rate is 72. HEENT: Normocephalic, atraumatic. NECK: Supple. No palpable lymph nodes. PULMONARY: The lungs are clear to auscultation bilaterally. CARDIO: Regular rate and rhythm. Strong S1, S2. ABDOMEN: Soft, nontender, nondistended. NEUROLOGICAL: She is alert and oriented x3. MUSCULOSKELETAL: Right lower extremity: The incision is well healed. There are no signs of infection. Range of motion is 0 to 90 degrees. She has 2+ dorsalis pedis pulse, has intact sensation in her lower extremity. Muscle group strengths are intact at 5/5. ASSESSMENT AND PLAN: Ms. Maurer is a 57-year-old female who underwent a right total knee arthroplasty back on 11/16/17. She has continued stiffness and has elected to proceed with manipulation under anesthesia of her right total knee arthroplasty, which is scheduled for 01/25/[address] Soliman discussed the risks and benefits of the surgery at today's visit and all of her questions were answered. She will follow up with Dr. Soliman 10 to 14 days after the surgery. BRANDON BEDOYA [id number]/[facility] #: [id number] [place]
[~2018-01-25 05:59] MED LIST changes: -Acetaminophen IV 1GM/100ML * 1,000 MG/100 ML VIAL IVPB ONE; -Dexamethasone IV* 4 MG/ML 1 ML (4 MG) IV SLOW PU ONE; -Famotidine IV* 10 MG/ML 2 ML (20 mg) IV ONE; +Ondansetron TAB* 4 MG PO ONE
[2018-01-25] MEDS ORDERED: Famotidine IV* 10 MG/ML 2 ML (20 mg) IV ONE (06:00)
[2018-01-25] MEDS ORDERED: Dexamethasone TAB* 4 MG PO ONE (06:00)
[2018-01-25] MEDS ORDERED: Ondansetron ODT TAB* 4 MG ONE (06:14)
[2018-01-25] MEDS ORDERED: Famotidine IV* 10 MG/ML 2 ML (20 mg) ONE (06:14)
[2018-01-25] MEDS ORDERED: Dexamethasone TAB* 4 MG ONE (06:15)
[2018-01-25] MEDS ORDERED: ceFAZolin 2 GM PREMIX (*) 2 GM/50 ML BAG IVPB ONE (06:15)
[2018-01-25] MEDS ORDERED: PROCHLORPERAZINE INJ 5 MG/ML 2 ML VIAL IV PRN (06:17)
[2018-01-25] MEDS ORDERED: DiMENhydriNATE IV* 50 MG/ML VIAL IV PUSH PRN (06:17)
[2018-01-25] MEDS ORDERED: oxyCODONE TAB* 5 MG TAB PO PRN (06:17)
[2018-01-25] MEDS ORDERED: Morphine INJ* 2 MG/ML 1 ML SYRINGE (TWO MG - NEW SYRINGE VERSION) IV PRN (06:17)
[2018-01-25] MEDS ORDERED: oxyCODONE/Acetamin 5/325 MG* TAB PO PRN (06:17)
[2018-01-25] MEDS ORDERED: fentaNYL* 50 MCG/ML 2 ML VIAL (100 MCG VIAL) IV PRN (06:17)
[2018-01-25] MEDS ORDERED: Naloxone* 0.4 MG/ML 1 ML VIAL IV PRN (06:17)
[2018-01-25] MEDS ORDERED: Scopolamine 1.5 mg* PATCH TRANSDERM PRN (06:17)
[2018-01-25] MEDS ORDERED: Midazolam* 1 MG/ML 5 ML VIAL (5 MG) ONE (07:02)
[2018-01-25] MEDS ORDERED: fentaNYL* 50 MCG/ML 2 ML VIAL (100 MCG VIAL) ONE (07:02)
[2018-01-25] MEDS ORDERED: KETAMINE HCL* 50 MG/ML 10 ML VIAL ONE (07:02)
[2018-01-25] MEDS ORDERED: Propofol* 10 MG/ML 20 ML BTL IV PUSH ONE (07:43)
[2018-01-25] MEDS ORDERED: Chloroprocaine 2%* 20 ML VIAL ONE (07:43)
--- NOTE | 2018-01-25 08:35 | RAD ---
CPT II Codes: G9500 INDICATION: Right knee manipulation 4.3 seconds of fluoroscopy time was used. 4.3 seconds of fluoroscopy time was used. 4 spot images demonstrates manipulation of right knee. IMPRESSION: Fluoroscopic services provided for referring physician.
[2018-01-25 09:29] VITALS: BP 133/82
--- NOTE | 2018-01-26 09:42 | OP ---
DATE OF OPERATION: 01/25/18 - [facility] DATE OF : 56 ATTENDING SURGEON: Phyllis Soliman MD ANESTHESIOLOGIST: Dr. Cantu. ANESTHESIA: Spinal. 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 OPERATIVE PROCEDURE: Right total knee arthroplasty manipulation under anesthesia. BRIEF HISTORY/INDICATION: Ms. Maurer is a 57-year-old female who had right total knee arthroplasty approximately 6 weeks ago. In the immediate postoperative recovery phase, she did not aggressively work on range of motion and developed some scar tissue and arthrofibrosis. She continued to have pain and stiffness and was only able to achieve flexion of 90 degrees. The patient and I discussed manipulation under anesthesia of the right knee replacement and she wished to proceed. I did contact her primary care physician who had no medical objections to proceeding. Informed consent was obtained from the patient. She understood the risks of the procedure included, but were not limited to, bleeding, infection, damage to nearby structures, need for further surgery, continued stiffness, periprosthetic fracture, loosening of the implant, stroke, heart attack, blood clot, and . She wished to proceed. INTRAOPERATIVE FINDINGS: Intraoperatively, the patient's preop range of motion was 5 to 90 degrees of flexion, postoperative range of motion was 3 to 130 degrees of flexion. COMPLICATIONS: None. ESTIMATED BLOOD LOSS: None. SPECIMENS: None. DESCRIPTION OF PROCEDURE: Ms. Maurer was identified in the preanesthesia unit. Her right lower extremity was marked as the correct operative side. Informed consent was signed and placed in the chart. The patient was taken to the operating room and placed under spinal anesthesia. Preop time-out was made to correctly identify the patient's side and site. The right knee was gently flexed and extended multiple times. Palpable and audible scar tissue breakdown was noted. The knee flexed quite easily to 130 degrees and slightly beyond. Next, AP and lateral C-arm views were obtained to ensure no periprosthetic fracture. None was noted. Final range of motion was noted to be about 3 degrees from full extension to 130 degrees of flexion. This is documented with photographs in the operating room. The patient's anesthesia was reversed without difficulty. She was taken to the PACU in stable condition. Intended weightbearing will be weight-bearing as tolerated with immediate physical therapy. She will follow up in my office in 3 to 5 days for a recheck. [id number]/[facility] #: [id number] [place]
[2018-01-28] MEDS ORDERED: Scopolamine PATCH Remove* 1 NOTE MISC PATCH OFF ONE (06:19)
== END 2018-01-25 09:39 | disposition home or self-care (01) ==
LOC: OR 05:59
PROVIDERS: ATTEND Orthopaedic Surgery Adult Reconstructive Orthopaedic Surgery
DX: T84.82XA Fibrosis due to internal orthopedic prosthetic devices, implants and grafts, initial encounter (principal); Z96.651 Presence of right artificial knee joint; M25.561 Pain in right knee; E03.9 Hypothyroidism, unspecified; E78.00 Pure hypercholesterolemia, unspecified; I10 Essential (primary) hypertension; J45.909 Unspecified asthma, uncomplicated
CPT/HCPCS: 76000; A9270-GY; J0690; J2250; J2400; J2704; J3010; J8540

== ENCOUNTER 2018-05-27 17:45 | Emergency (ER) | payer BC ==
--- NOTE | 2018-05-27 19:38 | ED ---
Abdominal Pain/Female - HPI Summary HPI Summary: Patient is a 57 y/o F presenting to ED with RUQ pain onsetting today at around 1300 after eating lunch. On triage, it is reported that patient has been eating fattier foods recently. No vomiting reported but patient endorses nausea, took Zofran at 1600. Pain is constant when standing/sitting, intermittent when lying down. Chills endorsed as well, states she currently feels she is getting hotter. Patient is on BP meds, thyroid and HLD medications. PSHx of kidney donation, left, and Jose Raul Fundoplication. She states that a month after the kidney donation, she had gallbladder "sludge" in the March of last year. She reports present Sx are similar to this episode. PSHx of appendectomy. PMHx of ovarian cysts. On triage, pain is rated 7/10, nothing is noted to aggravate/ alleviate Sx. Home medications and allergies are reviewed. - History of Current Complaint Chief Complaint: EDAbdPain Stated Complaint: ABD PAIN Hx Obtained From: Patient Onset/Duration: Lasting Hours - onset 1300 today, Still Present Timing: Constant Severity Currently: Severe - 7/10 Pain Intensity: 7 Pain Scale Used: 0-10 Numeric - 7/10 Location: Discrete At: RUQ Radiates: No Aggravating Factor(s): Nothing Alleviating Factor(s): Position - pain is steady sitting/standing, intermittent lying down Associated Signs and Symptoms: Positive: Nausea, Other: - chills, states she feels she is getting hotter currently. Negative: Vomiting Allergies/Adverse Reactions: Allergies Allergy/AdvReac Type Severity Reaction Status Date / Time Sulfa (Sulfonamide Allergy Intermediate See Comment Verified 01/25/18 06:20 Antibiotics) sulfamethoxazole Allergy Intermediate See Comment Verified 01/25/18 06:20 [From Bactrim] trimethoprim [From Bactrim] Allergy Intermediate See Comment Verified 01/25/18 06:20 ibuprofen AdvReac Severe See Comment Verified 01/25/18 06:20 PMH/Surg Hx/FS Hx/Imm Hx Endocrine/Hematology History: Reports: Hx Thyroid Disease - on medications Denies: Hx Bone Marrow Disease, Hx Diabetes, Hx Sickle Cell Disease, Hx Anemia Cardiovascular History: Reports: Hx Coronary Artery Disease - ON LIPITOR, Hx Hypertension - on medication, Other Cardiovascular Problems/Disorders - Elevated cholesterol- on medication Respiratory History: Reports: Hx Asthma - usually when sick, Other Respiratory Problems/Disorders - PLUERAL EFFUSION 03/07 POST-OP AFTER KIDNEY DONATION GI History: Reports: Hx Gastroesophageal Reflux Disease - Jose Raul Fundoplication - 04/2014, Hx Hiatal Hernia, Other GI Disorders - Nausea, takes zofran, Constipation from narcotic pain med-on colace Denies: Hx Ulcer History: Reports: Other Problems/Disorders - 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 [facility], 1 UTI prior to surg & 1 after Denies: Hx Kidney Infection, Hx Kidney Stones Musculoskeletal History: Reports: Hx Arthritis - KNEES, HIPS, BACK, Hx Bursitis - LEFT HIP, Hx Tendonitis - LEFT ELBOW, Other Musculoskeletal History - PAIN, OSTEOARTHRITIS RIGHT KNEE - Total Knee Replacement 11/05 Sensory History: Reports: Hx Contacts or Glasses - BOTH, WILL WEAR GLASSES DOS Denies: Hx Cataracts, Hx Glaucoma, Hx Hearing Aid Opthamlomology History: Reports: Hx Contacts or Glasses - BOTH, WILL WEAR GLASSES DOS Denies: Hx Cataracts, Hx Glaucoma Neurological History: Denies: Other Neuro Impairments/Disorders Psychiatric History: Reports: Hx Anxiety, Hx Depression - FROM [id number] Denies: Hx Attention Deficit Hyperactivity Disorder, Hx Eating Disorder, Hx Panic Disorder, Hx Post Traumatic Stress Disorder, Hx Inpatient Treatment, Hx Community Mental Health Tx, Hx Schizophrenia, Hx Bipolar Disorder, Hx Suicide Attempt, Hx of Violent Episodes Against Others, Hx Substance Abuse, Other Psychiatric Issues/Disorders - Cancer History Hx Chemotherapy: No - Surgical History Surgery Procedure, Year, and Place: C Sections 1980 & 1984. Partial Thyroidectectomy 1981. Thyroidectomy 2001. Abdominal Hysterectomy 2003 [facility] [place]. Arthroscopic right knee surgery meniscus 04/2013 [place]. Jose Raul Fundoplication 2013 [place]. Left kidney donation 02/2017. Right Total Knee Rreplacement 11/16/17 Hx Anesthesia Reactions: No - knee surgery anesthesia was good - Immunization History Immunizations Up to Date: Yes Infectious Disease History: No Infectious Disease History: Denies: Hx Clostridium Difficile, Hx Hepatitis, Hx Human Immunodeficiency Virus (HIV), Hx of Known/Suspected MRSA, Hx Shingles, Hx Tuberculosis, History Other Infectious Disease, Traveled Outside the [place] in Last 30 Days - Family History Known Family History: Negative: Blood Disorder - Social History Alcohol Use: Weekly Alcohol Amount: Socially 1-2 times per week Substance Use Type: Reports: None Smoking Status (MU): Never Smoked Tobacco Have You Smoked in the Last Year: No Review of Systems Positive: Chills Positive: Abdominal Pain, Nausea. Negative: Vomiting All Other Systems Reviewed And Are Negative: Yes Physical Exam - Summary Physical Exam Summary: VITAL SIGNS: Reviewed. GENERAL: Patient is a well-developed and nourished female who is lying comfortable in the stretcher. Patient is not in any acute respiratory distress. HEAD AND FACE: No signs of trauma. No ecchymosis, hematomas or skull depressions. No sinus tenderness. EYES: PERRLA, EOMI x 2, No injected conjunctiva, no nystagmus. EARS: Hearing grossly intact. Ear canals and tympanic membranes are within normal limits. MOUTH: Oropharynx within normal limits. NECK: Supple, trachea is midline, no adenopathy, no JVD, no carotid bruit, no c- spine tenderness, neck with full ROM. CHEST: Symmetric, no tenderness at palpation LUNGS: Clear to auscultation bilaterally. No wheezing or crackles. CVS: Regular rate and rhythm, S1 and S2 present, no murmurs or gallops appreciated. ABDOMEN: Soft, RUQ tenderness. No signs of distention. No rebound no guarding, and no masses palpated. Bowel sounds are normal. EXTREMITIES: FROM in all major joints, no edema, no cyanosis or clubbing. NEURO: Alert and oriented x 3. No acute neurological deficits. Speech is normal and follows commands. SKIN: Dry and warm Triage Information Reviewed: Yes Vital Signs On Initial Exam: Initial Vitals Temp Pulse Resp BP Pulse Ox 96.6 F 91 18 169/95 100 05/27/18 17:45 05/27/18 17:45 05/27/18 17:45 05/27/18 17:45 05/27/18 17:45 Vital Signs Reviewed: Yes Diagnostics - Vital Signs Vital Signs Temp Pulse Resp BP Pulse Ox 05/27/18 19:13 83 22 178/110 96 05/27/18 19:00 86 26 98 05/27/18 18:43 90 17 166/110 99 05/27/18 17:45 96.6 F 91 18 169/95 100 - Laboratory Result Diagrams: 05/27/18 20:10 05/27/18 20:10 Lab Statement: Any lab studies that have been ordered have been reviewed, and results considered in the medical decision making process. - Ultrasound No standard instances Ultrasound Interpretation Completed By: Radiologist Summary of Ultrasound Findings: GALLBLADDER US IMPRESSION: Gallstones with borderline wall thickening. No biliary ductal dilatation or focal tenderness. THIS REPORT WAS REVIEWED BY ED PHYSICIAN. Re-Evaluation - Re-Evaluation First Eval Re-Evaluation Time: 22:50 Change: Improved Comment: Patient reports improvement in pain. Results of labs and tests were discussed with patient. She will be discharged and was advised to follow up with surgery in the office in three days on Wednesday. Patient is agreeable with this. Abdominal Pain Fem Course/Dx - Course Course Of Treatment: Patient is a 57 y/o F presenting to ED with RUQ pain onsetting today at around 1300 after eating lunch. On triage, it is reported that patient has been eating fattier foods recently. No vomiting reported but patient endorses nausea, took Zofran at 1600. Pain is constant when standing/ sitting, intermittent when lying down. Chills endorsed as well, states she currently feels she is getting hotter. Patient is on BP meds, thyroid and HLD medications. PSHx of kidney donation, left, and Jose Raul Fundoplication. She states that a month after the kidney donation, she had gallbladder "sludge" in the March of last year. She reports present Sx are similar to this episode. PSHx of appendectomy. PMHx of ovarian cysts. On physical exam, RUQ tenderness is noted. Labs showed WBC 9, absolute lymphs 0.9, creatinine 1.23, glucose 140 , total bilirubin 1.4, AST 364, ALT 210, alk phos 121, CRP 5.57, amylase 50, lipase 30. UA was positive for ascorbic acid. GALLBLADDER US IMPRESSION: Gallstones with borderline wall thickening. No biliary ductal dilatation or focal tenderness. During ED course, patient received fluids, protonix 40 mg IV ED ONCE ONE, Morphine Vial 4 mg IV ED ONCE ONE, and reglan 10 mg IV SLOW PU ONCE ONE. Patient reports improvement in pain. Results of labs and tests were discussed with patient. She will be discharged and was advised to follow up with surgery in the office in three days on Wednesday. Patient is agreeable with this. - Diagnoses Provider Diagnoses: Cholelithiasis Discharge - Sign-Out/Discharge Documenting (check all that apply): Patient Departure - discharge - Discharge Plan Condition: Stable Disposition: HOME Prescriptions: oxyCODONE/Acetamin 5/325 MG* [Percocet 5/325 TAB*] 1 tab PO Q6H PRN #14 tab MDD 4 PRN Reason: Pain Patient Education Materials: Gallstones (ED) Referrals: Vito Gilliam MD [Medical Doctor] - 3 Days Additional Instructions: RETURN TO THE EMERGENCY DEPARTMENT FOR CHANGING OR WORSENING SYMPTOMS. FOLLOW UP WITH SURGERY THIS WEDNESDAY IN THREE DAYS. - Attestation Statements Document Initiated by Scribe: Yes Documenting Scribe: MICHAELLE GARCIA Provider For Whom Scribe is Documenting (Include Credential): CYNTHIA DIA MD Scribe Attestation: IMICHAELLE , scribed for CYNTHIA DIA MD on 05/27/18 at 2316. Status of Scribe Document: Ready
[2018-05-27] MEDS ORDERED: NS 0.9% 1000 ML* 1,000 ML IV ONE ×2 (19:53→19:55)
[2018-05-27] MEDS ORDERED: Morphine VIAL* 4 MG/ML VIAL (1 ml vial) IV ONE (19:55)
[2018-05-27] MEDS ORDERED: Pantoprazole IV* 40 MG IV ONE (19:56)
[2018-05-27] MEDS ORDERED: Metoclopramide IV* 5 MG/ML 2 ML VIAL IV SLOW PU ONE (19:56)
[2018-05-27 20:19] LABS: ABS Basophils 0 10^3/ul (0-0.2); ABS Eosinophils 0.1 10^3/ul (0-0.6); ABS Lymphocytes 0.9 10^3/ul (1.0-4.8); ABS Monocytes 0.6 10^3/ul (0-0.8); ABS Neutrophils 7.4 10^3/ul (1.5-7.7); ABS Nucleated RBC 0 10^3/ul; Eosinophil % 1.3 %; Hematocrit 37 % (35-47); Hemoglobin 12.6 g/dl (12.0-16.0); Lymphocyte % 9.7 %; Mean Corpuscular HGB Conc 34 g/dl (31-36); Mean Corpuscular Hemoglobin 31 pg (27-31); Mean Corpuscular Volume 90 fL (80-97); Nucleated Red Blood Cells % 0; Platelet Count 236 10^3/ul (150-450); Red Blood Count 4.08 10^6/ul (4.00-5.40); Red Cell Distribution Width 14 % (10.5-15)
[2018-05-27 20:27] LABS: Urine Appearance Clear; Urine Blood Negative (Negative); Urine Color Yellow; Urine Ketones Negative (Negative); Urine Protein Negative (Negative); Urine Specific Gravity 1.017 (1.010-1.030); Urine Urobilinogen Negative (Negative)
[2018-05-27 20:28] LABS: INR 0.92 (0.77-1.02)
[2018-05-27 20:38] LABS: EGFR Non-African American 44.7 (>60)
[2018-05-27 23:22] VITALS: BP 131/86
== END 2018-05-27 23:24 | disposition home or self-care (01) ==
LOC: ED 17:45
DX: K80.20 Calculus of gallbladder without cholecystitis without obstruction (principal); R10.11 Right upper quadrant pain; Z88.2 Allergy status to sulfonamides; Z88.6 Allergy status to analgesic agent; I25.10 Atherosclerotic heart disease of native coronary artery without angina pectoris; I10 Essential (primary) hypertension; Z79.01 Long term (current) use of anticoagulants; R68.83 Chills (without fever)
CPT/HCPCS: 36415; 76705; 80053; 81003; 82150; 83690; 83735; 85025; 85610; 85730; 86140; 96361; 96374; 96375; 99284; J2270; J2765

== ENCOUNTER 2018-07-23 11:02 | Emergency (ER) | payer SELFPAY ==
--- NOTE | 2018-07-23 12:33 | UC ---
Respiratory Complaint HPI - HPI Summary HPI Summary: 57 y/o female presents to the urgent care c/o sore throat, nasal congestion w/ yellowish nasal discharge, body aches WINN and low grade fever for the past 3 days. Cough is now productive w/ yellowish phlegm and last night she developed mild wheezing. She has Hx of asthma and has donated 1 kidney in the past. Pt started to use her inhaler last night. She has also taken Dayquill PO to alleviate symptoms. Pt denies SOB, chest pain, abdominal pain, N/V/D. - History of Current Complaint Chief Complaint: UCRespiratory Stated Complaint: COUGH Time Seen by Provider: 07/23/18 12:32 Hx Obtained From: Patient ?: No - menopausal Onset/Duration: Gradual Onset, Lasting Days - 3 days, Still Present, Worse Since - today Timing: Constant Severity Initially: Mild Severity Currently: Moderate Pain Intensity: 6 - body aches Pain Scale Used: 0-10 Numeric Character: Cough: Productive, Sputum Description: - yellowish Aggravating Factors: Recumbent Position Alleviating Factors: Bronchodilator, OTC Meds Associated Signs And Symptoms: Positive: Dyspnea, Fever, Chills, Wheezing, URI, Nasal Congestion, Sinus Discomfort - Risk Factors Pulmonary Embolism Risk Factors: Negative Cardiac Risk Factors: Negative Pseudomonas Risk Factors: Negative Tuberculosis Risk Factors: Negative - Allergies/Home Medications Allergies/Adverse Reactions: Allergies Allergy/AdvReac Type Severity Reaction Status Date / Time Sulfa (Sulfonamide Allergy Intermediate See Comment Verified 07/23/18 11:26 Antibiotics) sulfamethoxazole Allergy Intermediate See Comment Verified 07/23/18 11:26 [From Bactrim] trimethoprim [From Bactrim] Allergy Intermediate See Comment Verified 07/23/18 11:26 ibuprofen AdvReac Severe See Comment Verified 07/23/18 11:26 PMH/Surg Hx/FS Hx/Imm Hx Previously Healthy: Yes Endocrine History: Hypothyroidism, Dyslipidemia Respiratory History: Asthma Other GI/ History: Pt donated 1 kidney - Surgical History Surgical History: Yes Surgery Procedure, Year, and Place: C Sections 1980 & 1984. Partial Thyroidectectomy 1981. Thyroidectomy 2001. Abdominal Hysterectomy 2003 [facility] [place]. Arthroscopic right knee surgery meniscus 04/2013 [place] right knee replacement donated right kidney. Jose Raul Fundoplication 2013 [place]. Left kidney donation 02/2017. Right Total Knee Rreplacement 11/16/17 - Family History Known Family History: Positive: Cardiac Disease Negative: Blood Disorder Family History: dyslipidemia - Social History Occupation: Employed Full-time Lives: With Family Alcohol Use: Weekly Alcohol Amount: Socially 1-2 times per week Substance Use Type: None Smoking Status (MU): Never Smoked Tobacco Have You Smoked in the Last Year: No - Immunization History Most Recent Influenza Vaccination: 04/06 Most Recent Pneumonia Vaccination: NONE Review of Systems All Other Systems Reviewed And Are Negative: Yes Constitutional: Positive: Fever, Chills, Other - body aches Skin: Positive: Negative Eyes: Positive: Negative ENT: Positive: Sore Throat, Nasal Discharge - yellowish, Sinus Congestion, Sinus Pain/Tenderness, Other - PND Respiratory: Positive: Cough - productive w/ yellowish phlegm, Other - wheezing Cardiovascular: Positive: Negative Gastrointestinal: Positive: Negative Genitourinary: Positive: Negative Motor: Positive: Negative Neurovascular: Positive: Negative Musculoskeletal: Positive: Negative Neurological: Positive: Headache Psychological: Positive: Negative Is Patient Immunocompromised?: No Physical Exam - Summary Physical Exam Summary: Vital Signs Reviewed: Yes General: well developed, well nourished female sitting in the examining table w/ o any apparent distress Eyes: Positive: Conjunctiva Clear - PERRLA, EOMI, fundi grossly normal ENT: Positive: Normal ENT inspection, Hearing grossly normal, Pharynx normal, Nasal congestion - edematous and erythematous nasal mucosa, Nasal drainage - yellowish drainage, TMs normal. Negative: Tonsillar swelling, Tonsillar exudate Neck: Positive: Supple, Nontender, No Lymphadenopathy Respiratory: no orthopnea or dyspnea. Able to speak in full sentences, no retractions or accessory muscle use, no tripod position, stridor, or head bobbing. Positive breath sounds bilaterally. diffuse scattered wheezing and rhonchi on b/L lungs, no crackles or rales. Cardiovascular: Positive: RRR, No Murmur, Pulses Normal, Brisk Capillary Refill Abdomen Description: Positive: Nontender, No Organomegaly, Soft. Negative: CVA Tenderness (R), CVA Tenderness (L) Bowel Sounds: Positive: Present Musculoskeletal Exam: Normal Musculoskeletal: Positive: Strength Intact, ROM Intact, No Edema Neurological Exam: Normal Psychological Exam: Normal Skin Exam: Normal Triage Information Reviewed: Yes Vital Signs: Initial Vital Signs Temp 99.4 F 07/23/18 11:22 Pulse 100 07/23/18 11:22 Resp 20 07/23/18 11:22 BP 150/95 07/23/18 11:22 Pulse Ox 98 07/23/18 11:22 UC Diagnostic Evaluation - Laboratory O2 Sat by Pulse Oximetry: 98 Respiratory Course/Dx - Course Course Of Treatment: 57 y/o female presents to the urgent care c/o sore throat, nasal congestion w/ yellowish nasal discharge, body aches WINN and low grade fever for the past 3 days. Cough is now productive w/ yellowish phlegm and last night she developed mild wheezing. She has Hx of asthma and has donated 1 kidney in the past. Pt started to use her inhaler last night. She has also taken Dayquill PO to alleviate symptoms. Pt denies SOB, chest pain, abdominal pain, N/V/D. Hx obtained. Pt w/ B/L lungs w/ scattered wheezes and rhonchi on examination. O2Sat:98%. Rapid Strep: negative. Influenza A&B: Positive Influenza A. - Differential Dx/Diagnosis Differential Diagnosis/HQI/PQRI: Asthma, Bronchitis, Influenza, Lower Resp Infection, Sinusitis, Other - pneumonia Provider Diagnosis: Influenza A, Elevated BP without diagnosis of hypertension Discharge - Discharge Plan Referrals: Darshana Rose MD [Primary Care Provider] -
[2018-07-23] MEDS ORDERED: Albuterol 2.5 MG/3 ML NEB.SOL* (0.083%) INH ONE (12:45)
[2018-07-23 12:52] LABS: Influenza A Molecular POSITIVE (Negative)
[2018-07-23] MEDS ORDERED: Oseltamivir CAP* 75 MG CAP PO ONE (13:33)
[2018-07-23] MEDS ORDERED: Acetaminophen TAB* 325 MG PO ONE (13:33)
[2018-07-23 14:17] VITALS: BP 142/77
--- NOTE | 2018-07-24 19:48 | UC ---
Course/Dx - Diagnoses Provider Diagnoses: Influenza A, Elevated BP without diagnosis of hypertension Discharge - Sign-Out/Discharge Documenting (check all that apply): Patient Departure All imaging exams completed and their final reports reviewed: Yes - Discharge Plan Condition: Stable Disposition: HOME Prescriptions: Oseltamivir CAP* [Tamiflu CAP*] 75 mg PO BID #9 cap Patient Education Materials: Influenza (ED) Referrals: Darshana Rose MD [Primary Care Provider] - 2 Days Additional Instructions: 1- Please take the full course of the antiviral to avoid resistance. Encourage hand washing and wear a mask to avoid spreading. 2-Please continue taking Tylenol PO q6-8hrs prn as instructed after meals to alleviate fever, and sore throat. Increase fluid intake, eat well, rest and avoid strenuous exercise 3-If symptoms do not improve or worsen please return to the urgent care or f/u with your PCP in 2 days for further evaluation and treatment. - Billing Disposition and Condition Condition: STABLE Disposition: Home
== END 2018-07-23 14:21 | disposition home or self-care (01) ==
LOC: UCEAST 11:02
DX: J10.1 Influenza due to other identified influenza virus with other respiratory manifestations (principal); R03.0 Elevated blood-pressure reading, without diagnosis of hypertension; J45.909 Unspecified asthma, uncomplicated; Z88.2 Allergy status to sulfonamides; Z88.1 Allergy status to other antibiotic agents; Z88.8 Allergy status to other drugs, medicaments and biological substances
CPT/HCPCS: 71046; 87651; 99212; A9270-GY; G0463

== ENCOUNTER 2018-09-13 07:27 | Day surgery (SDC) | payer BC ==
--- NOTE | 2018-09-05 14:57 | HP ---
CC: Dr. Darshana Rose * ADMISSION HISTORY AND PHYSICAL: DATE OF ADMISSION: 09/13/18 ATTENDING SURGEON: Dr. Rio Reyes.* (DICTATED BY BRANDON MALDONADO) CHIEF COMPLAINT: Symptomatic cholelithiasis. HISTORY OF PRESENT ILLNESS: This is a 57-year-old female with significant past medical history as noted below, who first had symptoms of upper abdominal and specifically right upper quadrant discomfort in the fall of 2016 following her left kidney donation. An ultrasound at that time was described showing sludge. She adopted low fat diet with good control of her symptoms. However, in May of 2018, she began having recurrent right upper quadrant pain particularly after fatty food. She describes the pain as sharp and located in the right upper quadrant with radiation to the back and accompanied by bloating and nausea, but no vomiting or diarrhea. She also reported chills. One of those attacks was severe enough for her to present to the ED on 05/27/18. Lab work at that time included a normal CRP, but elevation of liver function test as follows; total bilirubin 1.4, AST 364, ALT 210, alkaline phosphatase 121. Amylase and lipase were normal. An ultrasound on that day showed multiple small gallstones with sludge, the gallbladder wall thickening of 3.4 mm and a normal common bile duct of 4.8 mm. Her symptoms improved and she was discharged. She was seen by Dr. Reyes. She states that in the interim she has been pretty much symptom free with the exception of some minor epigastric discomfort about 4 days ago, which quickly resolved without any additional symptoms. She is feeling well today. Dr. Reyes had felt that her symptoms were consistent with symptomatic cholelithiasis. He has outlined for her the indications for surgery the risks, benefits, and alternatives and she would like to proceed as scheduled with laparoscopic cholecystectomy. PAST MEDICAL HISTORY: 1. Hypertension. 2. Asthma (exercise induced and occasionally related to bronchitis). 3. GERD (pretty much resolved since Robby fundoplication). 4. Arthritis. 5. Hyperlipidemia. 6. Hypothyroidism (following thyroidectomy). 7. She has a single kidney after having donated her left kidney. PAST SURGICAL HISTORY: Include: 1. x2, both via low transverse incisions. 2. A KING with BSO likewise via low transverse incision for benign disease. 3. Left kidney donation done laparoscopically with midline hand-assist port 2016. 4. Right total knee arthroplasty in 2018. 5. She has had prior arthroscopy and meniscectomy. 6. She underwent left thyroid lobectomy in the 1980s for benign disease and then subsequent thyroidectomy in 2001, again for benign disease. She is on chronic replacement. 7. She is status post laparoscopic Robby fundoplication in 2013 and appendectomy with diagnostic laparoscopy for ovarian cyst disease remotely. No reported surgical or anesthesia complications. CURRENT MEDICATIONS: 1. Levothyroxine 88 mcg once daily. 2. [place] Thyroid 30 mg once daily. 3. Vitamin D3 2000 International Units once daily. 4. Atorvastatin 20 mg once daily. 5. Losartan 50 mg once daily. 6. Ventolin MDI 2 puffs p.r.n. (uses infrequently). 7. Probiotic once daily. 8. Diclofenac 1% gel topically to right knee b.i.d. 9. Zofran p.r.n. DRUG ALLERGIES: 1. SULFA (itching). 2. IBUPROFEN (she avoids all NSAIDs secondary to her single kidney). FAMILY HISTORY: Positive for gallbladder disease and negative for anesthesia problems, bleeding, or clotting disorders. SOCIAL HISTORY: The patient is . 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 She denies use of tobacco. Drinks up to 3 drinks per week and denies any other recreational drug use. REVIEW OF SYSTEMS: General: No recent constitutional symptoms or acute illnesses other than described in the HPI. Her weight has been relatively stable. HEENT: No problems reported. Cardiovascular: No chest pain or palpitations. She was evaluated for symptoms back in the fall and underwent both echocardiogram and nuclear stress test both of which were normal (see attached from Dr. Lees followup note from 05/19/18). She was treated for hypertension. Respiratory: As above. No recent chronic cough or shortness of breath. GI: As above. No particular lower GI symptoms. Colonoscopy done within the past 5 years reported removal of benign polyp and followup recommended in 5 years. No interval symptoms of concern. : Single right kidney. No other problems reported. DRAMATIC AGENT: No vaginal symptoms. She has negative breast exam and mammogram was reported to be normal. Endocrine: No diabetes. She is on chronic thyroid replacement (she did have some self- adjustment of her thyroid medications in the last month, partly related to insurance issues, I suggested that she get back to her usual regimen and then have lab work checked for thyroid function). Musculoskeletal: She is still recovering from her right knee arthroplasty, but is improving in terms of range of motion, though pain is still somewhat of a problem. Neuro/Psych: No problems reported. PHYSICAL EXAMINATION GENERAL: Well-nourished somewhat obese female, in no acute distress. VITAL SIGNS: Height 5 feet 2 inches, weight 174 pounds. Temperature 97.1, blood pressure 130/88, pulse 78. HEENT: Pupils equal, round, and reactive. EOMs intact. No conjunctival pallor or scleral icterus. Oropharynx: Teeth in good repair. No intraoral lesions. NECK: No lymphadenopathy or palpable masses. She has well-healed anterior neck incision from prior thyroidectomy. LUNGS: Clear to auscultation. No rales or wheezes. HEART: Regular rate and rhythm. No murmur appreciated. BREASTS: Not examined. ABDOMEN: Well-healed laparoscopic and midline incision as well as low transverse incision. No palpable masses or organomegaly. No tenderness to palpation. Negative Will sign. GENITALIA: Not done. RECTAL: Not done. BACK: No spinous process or CVA tenderness. EXTREMITIES: No edema. NEUROLOGIC: Grossly intact. SKIN: Warm and dry. No suspicious rashes or lesions. IMPRESSION: Symptomatic cholelithiasis. PLAN: Laparoscopic cholecystectomy. Repeat liver panel was ordered to be obtained preoperatively. BRANDON MALDONADO [id number]/CPS #: [id number] DIXON
[~2018-09-13 07:27] MED LIST changes: -Buffered Lidocaine 0.9% SYRIN* 5 ML/SYR SYRINGE INTRADERM ONE; +Buffered Lidocaine 1% SYRIN* 1 ML/SYRINGE INTRADERM ONE; +Dexamethasone IV* 4 MG/ML 1 ML (4 MG) IV SLOW PU ONE; +Famotidine IV* 10 MG/ML 2 ML (20 mg) IV ONE; +Lactated Ringers 1000 ML Bag* 1,000 ML IV SCH; -Ondansetron TAB* 4 MG PO ONE
[2018-09-13] MEDS ORDERED: Dexamethasone IV* 4 MG/ML 1 ML (4 MG) ONE (07:58)
[2018-09-13] MEDS ORDERED: Famotidine IV* 10 MG/ML 2 ML (20 mg) ONE (07:59)
[2018-09-13] MEDS ORDERED: ceFAZolin 2 GM in NS PREMIX(*) 2 GM/100 ML BAG IVPB ONE (07:59)
[2018-09-13] MEDS ORDERED: Buffered Lidocaine 1% SYRIN* 1 ML/SYRINGE INTRADERM ONE (07:59)
[2018-09-13] MEDS ORDERED: fentaNYL* 50 MCG/ML 2 ML VIAL (100 MCG VIAL) ONE ×2 (08:45→10:51)
[2018-09-13] MEDS ORDERED: Midazolam* 1 MG/ML 2 ML VIAL (2 MG) ONE (08:46)
[2018-09-13] MEDS ORDERED: Ketorolac INJ* 30 MG/ML 1 ML VIAL ONE (09:16)
[2018-09-13] MEDS ORDERED: Ondansetron INJ* 2 MG/ML VIAL ONE (09:16)
[2018-09-13] MEDS ORDERED: Propofol* 10 MG/ML 20 ML BTL ONE (09:16)
[2018-09-13] MEDS ORDERED: Lidocaine 2% PF * 5 ML VIAL ONE (09:17)
[2018-09-13] MEDS ORDERED: Sugammadex * 200 MG/2 ML VIAL IV PUSH ONE (09:46)
[2018-09-13] MEDS ORDERED: Rocuronium* 10 MG/ML VIAL ONE (09:46)
[2018-09-13] MEDS ORDERED: fentaNYL* 50 MCG/ML 2 ML VIAL (100 MCG VIAL) IV PRN (10:46)
[2018-09-13] MEDS ORDERED: Naloxone* 0.4 MG/ML 1 ML VIAL IV PRN (10:46)
[2018-09-13] MEDS ORDERED: DiMENhydriNATE IV* 50 MG/ML VIAL IV PUSH PRN (10:46)
[2018-09-13] MEDS ORDERED: Bupivacaine 0.25% W/EPI* 10 ML SDV ONE (11:20)
--- NOTE | 2018-09-13 11:20 | OP ---
Operative Report - Blank - Operative Report Date of Operation: 09/13/18 Note: Brief Operative Note Preop Dx: Cholelithiasis Postop Dx: Same Procedure: Laparoscopic cholecystectomy Anesthesia: GET Surgeon: Eric Sign Builder: Konstantin Kerr Fluids: 800 mL EBL: 10 cc Specimen: Gallbladder Drains: none Findings: dictated
[2018-09-13] MEDS ORDERED: oxyCODONE/Acetamin 5/325 MG* TAB PO PRN (11:41)
[2018-09-13] MEDS ORDERED: oxyCODONE/Acetamin 5/325 MG* TAB ONE (12:01)
[2018-09-13 12:49] VITALS: BP 144/93
--- NOTE | 2018-09-15 13:11 | OP ---
CC: Darshana Rose MD* OPERATIVE REPORT: DATE OF OPERATION: 09/13/18 - SDS DATE OF : 56 SURGEON: Rio Reyes MD LITERATURE PROFESSOR: BRANDON Hawkins ANESTHESIOLOGIST: Dr. Gonzalez. ANESTHESIA: General endotracheal. PRE-OP DIAGNOSIS: Symptomatic gallstones. POST-OP DIAGNOSIS: Symptomatic gallstones. OPERATIVE PROCEDURE: Laparoscopic cholecystectomy. ESTIMATED BLOOD LOSS: Minimal. IV FLUIDS: Crystalloid. SPECIMEN: Gallbladder. DRAINS: None. COMPLICATIONS: None. COUNTS: The instrument, needle, and sponge counts are correct. DESCRIPTION OF PROCEDURE: The patient was brought to the operating room and placed on the table supine. Sequential compression devices were placed on both lower extremities. General anesthesia was administered. She received appropriate intravenous antibiotics. She was prepped and draped in the usual sterile fashion, and time-out was performed. Local anesthetic was infiltrated into the skin and soft tissue prior to making each incision. Entry into the abdomen was through a transumbilical vertical incision infraumbilically through the patient's previous scar. After accessing the peritoneal cavity, finger was placed within the peritoneal cavity and blunt dissection of the omentum from the area surrounding the infraumbilical incision was performed. A 12-mm blunt port was then placed. Carbon dioxide was insufflated to a pressure of 15 mmHg. Under direct visualization, 5-mm trocars were placed, 1 in the subxiphoid position and 2 in the right upper quadrant. The gallbladder was identified. It appeared to have chronic inflammatory changes. It was grasped with the fundus and retracted cephalad. The infundibulum was identified and the peritoneum investing the gallbladder adhered , was scored with cautery and then dissected free using combination of blunt and sharp dissection to dissect out the cystic duct and then cystic artery. The critical view was obtained and the 2 structures were doubly clipped and divided and the gallbladder was freed from the attachments to the liver using the cautery and staying in an avascular plane. Once the gallbladder was freed, it was placed into an endoscopic retrieval bag and retrieved through the umbilical site. Hemostasis was assured. Clips were noted to be intact. Ports removed under direct visualization. Carbon dioxide was released. The umbilical wound was closed with 0 Vicryl in [id number] fashion to approximate the fascia. Skin incisions were closed with 4-0 Monocryl in subcuticular fashion. Steri-Strips were applied. The patient tolerated this procedure well. She was extubated uneventfully and she was transferred to recovery room in stable condition. [id number]/[facility] #: [id number] DIXON
== END 2018-09-13 12:55 | disposition home or self-care (01) ==
LOC: OR 07:27
PROVIDERS: ATTEND Surgery
DX: K80.10 Calculus of gallbladder with chronic cholecystitis without obstruction (principal); I10 Essential (primary) hypertension; J45.909 Unspecified asthma, uncomplicated; M19.90 Unspecified osteoarthritis, unspecified site; E78.5 Hyperlipidemia, unspecified; E03.9 Hypothyroidism, unspecified; Z90.5 Acquired absence of kidney
CPT/HCPCS: 88304; A9270-GY; J0690; J1100; J1885; J2250; J2405; J2704; J3010

== ENCOUNTER 2019-09-18 13:20 | Emergency (ER) | payer BC, OTHER ==
--- NOTE | 2019-09-18 13:34 | ED ---
Neurological HPI - HPI Summary HPI Summary: Patient is a 59 y/o F presenting to the ED for a chief complaint of neurological deficit that began at approximately 12:45 on 09/18/19. Patient reports that upon waking up on 09/18/19, she had tearing of the left eye. Later in the day she had lunch with her and while eating, she noticed she had left sided facial weakness and left facial droop. She also reports having soreness in the left arm. For the last few days, patient notes having a headache , but denies a headache on 09/18/19. Patient denies changes in vision or weakness in any extremity. No aggravating or alleviating factors are reported. About 2 weeks ago, patient was seen for chest pain and had a workup that showed a possible ulcer, so patient was placed on Carafate. A history of Peres's palsy is denied. - History of Current Complaint Chief Complaint: EDNeurologicalDeficit Stated Complaint: POSS STROKE Time Seen by Provider: 09/18/19 13:25 Last Known Well Date: 12:45 09/18/19 Hx Obtained From: Patient Onset/Duration: Sudden Onset, Still Present Timing: Sudden Onset Onset Severity: Moderate Current Severity: Moderate Neurological Deficit Location: Facial Pain Intensity: 0 Pain Scale Used: 0-10 Numeric Aggravating: Nothing Alleviating: Nothing Associated Signs and Symptoms: Positive: Headache - Resolved, Weakness - Positve left-sided facial weakness and droop; negative weakness in the extremities, Change in Medication - 2 weeks ago - Additional Pertinent History Primary Care Physician: [id number] - Allergy/Home Medications Allergies/Adverse Reactions: Allergies Allergy/AdvReac Type Severity Reaction Status Date / Time Sulfa (Sulfonamide Allergy Intermediate See Comment Verified 09/13/18 08:16 Antibiotics) sulfamethoxazole Allergy Intermediate See Comment Verified 09/13/18 08:16 [From Bactrim] trimethoprim [From Bactrim] Allergy Intermediate See Comment Verified 09/13/18 08:16 ibuprofen AdvReac Severe See Comment Verified 09/13/18 08:16 Home Medications: Home Medications Levothyroxine TAB* [Synthorid 112 MCG TAB*] 88 mcg PO DAILY 05/15/12 [History Confirmed 09/18/19] Albuterol HFA INHALER* [Ventolin HFA Inhaler*] 2 puff INH Q6H PRN 11/03/17 [ History Confirmed 09/18/19] Atorvastatin* [Lipitor 20 MG*] 20 mg PO DAILY 11/03/17 [History Confirmed ] Cholecalciferol (Vitamin D3) [Vitamin D3] 1,000 unit PO DAILY 11/03/17 [History Confirmed 09/18/19] Losartan Potassium [Cozaar] 50 mg PO DAILY 11/03/17 [History Confirmed 09/18/19] Thyroid,Pork [[place] Thyroid] 30 mg PO DAILY 11/03/17 [History Confirmed ] Diclofenac 1% GEL (NF) [Voltaren 1% GEL (NF)] 1 applic TOPICAL BID PRN 01/21/18 [History Confirmed 09/18/19] Acetaminophen TAB* [Tylenol TAB*] 650 mg PO Q4H PRN 09/18/19 [History Confirmed 09/18/19] Docusate CAP* [Colace Cap*] 200 mg PO DAILY 09/18/19 [History Confirmed 09/18/19 ] Esomeprazole Magnesium [Nexium] 40 mg PO DAILY #320 mg 09/18/19 [Rx] Ibuprofen TAB* [Advil TAB*] 400 - 600 mg PO TID PRN 09/18/19 [History Confirmed 09/18/19] Multivitamins/Minerals TAB* [Theragran/minerals TAB*] 1 tab PO DAILY 09/18/19 [ History Confirmed 09/18/19] Nystatin TOP POWDER* 1 applic TOPICAL BID 09/18/19 [History Confirmed 09/18/19] Oseltamivir CAP* [Tamiflu CAP*] 75 mg PO BID 09/18/19 [History Confirmed ] Sucralfate TAB* [Carafate*] 1 gm PO TID 09/18/19 [History Confirmed 09/18/19] ValACYclovir (*) [Valtrex 1 GM(*)] 1 gm PO BID 7 Days #14 tab 09/18/19 [Rx] predniSONE 20 mg TAB [Deltasone 20 MG TAB*] 60 mg PO DAILY 7 Days #21 tab [Rx] PMH/Surg Hx/FS Hx/Imm Hx Previously Healthy: Yes Endocrine/Hematology History: Reports: Hx Thyroid Disease - on medications Denies: Hx Bone Marrow Disease, Hx Diabetes, Hx Sickle Cell Disease, Hx Anemia Cardiovascular History: Reports: Hx Coronary Artery Disease - ON LIPITOR, Hx Hypertension - on medication, Other Cardiovascular Problems/Disorders - Elevated cholesterol- on medication Respiratory History: Reports: Hx Asthma - usually when sick, Other Respiratory Problems/Disorders - PLUERAL EFFUSION 03/07 POST-OP AFTER KIDNEY DONATION GI History: Reports: Hx Gastroesophageal Reflux Disease - Jose Raul Fundoplication - 04/2014, Hx Hiatal Hernia, Other GI Disorders - Nausea, takes zofran, Constipation from narcotic pain med-on colace Denies: Hx Ulcer History: Reports: Other Problems/Disorders - 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 [facility], 1 UTI prior to surg & 1 after Denies: Hx Kidney Infection, Hx Kidney Stones Musculoskeletal History: Reports: Hx Arthritis - KNEES, HIPS, BACK, Hx Bursitis - LEFT HIP, Hx Tendonitis - LEFT ELBOW, Other Musculoskeletal History - PAIN, OSTEOARTHRITIS RIGHT KNEE - Total Knee Replacement 11/05 Sensory History: Reports: Hx Contacts or Glasses - BOTH, WILL WEAR GLASSES DOS Denies: Hx Cataracts, Hx Glaucoma, Hx Legally Blind, Hx Deafness, Hx Hearing Aid Opthamlomology History: Reports: Hx Contacts or Glasses - BOTH, WILL WEAR GLASSES DOS Denies: Hx Cataracts, Hx Glaucoma, Hx Legally Blind EENT History: Denies: Hx Deafness Neurological History: Denies: Other Neuro Impairments/Disorders - Negative Peres's Palsy Psychiatric History: Reports: Hx Anxiety, Hx Depression - FROM [id number] Denies: Hx Attention Deficit Hyperactivity Disorder, Hx Eating Disorder, Hx Panic Disorder, Hx Post Traumatic Stress Disorder, Hx Inpatient Treatment, Hx Community Mental Health Tx, Hx Schizophrenia, Hx Bipolar Disorder, Hx Suicide Attempt, Hx of Violent Episodes Against Others, Hx Substance Abuse, Other Psychiatric Issues/Disorders - Cancer History Hx Chemotherapy: No - Surgical History Surgical History: Yes Surgery Procedure, Year, and Place: C Sections 1980 & 1984. Partial Thyroidectectomy 1981. Thyroidectomy 2001. Abdominal Hysterectomy 2003 [facility] [place]. Arthroscopic right knee surgery meniscus 04/2013 [facility] right knee replacement donated right kidney. Jose Raul Fundoplication 2013. Left kidney donation 02/2017. Right Total Knee Rreplacement 11/16/17 Hx Anesthesia Reactions: No - knee surgery anesthesia was good Infectious Disease History: No Infectious Disease History: Denies: Hx Clostridium Difficile, Hx Hepatitis, Hx Human Immunodeficiency Virus (HIV), Hx of Known/Suspected MRSA, Hx Shingles, Hx Tuberculosis, History Other Infectious Disease - Family History Known Family History: Positive: Cardiac Disease Negative: Blood Disorder Family History: dyslipidemia - Social History Occupation: Employed Full-time Lives: With Family Alcohol Use: Weekly Alcohol Amount: Socially 1-2 times per week Hx Substance Use: No Substance Use Type: Reports: None Hx Tobacco Use: No Smoking Status (MU): Never Smoked Tobacco Have You Smoked in the Last Year: No Review of Systems Positive: Other - Positive tearing of the left eye; negative changes in vision Positive: Other - Positive soreness in the left arm Positive: Headache - Resolved, Weakness - Positve left-sided facial weakness and droop; negative weakness in the extremities All Other Systems Reviewed And Are Negative: Yes Physical Exam - Summary Physical Exam Summary: Constitutional: Well-developed, Well-nourished, Alert. (-) Distressed Skin: Warm, Dry HENT: Normocephalic; Atraumatic Eyes: Conjunctiva normal Neck: Musculoskeletal ROM normal neck. (-) JVD, (-) Stridor, (-) Tracheal deviation Cardio: Rhythm regular, rate normal, Heart sounds normal; Intact distal pulses; The pedal pulses are 2+ and symmetric. Radial pulses are 2+ and symmetric. (-) Murmur Pulmonary/Chest wall: Effort normal. (-) Respiratory distress, (-) Wheezes, (-) Rales Abd: Soft, (-) tenderness, (-) Distension, (-) Guarding, (-) Rebound Musculoskeletal: (-) Edema Lymph: (-) Cervical adenopathy Neuro: Alert, Oriented x3. Left facial weakness. GCS: 15; NIH Stroke Scale: 2. Psych: Mood and affect Normal Triage Information Reviewed: Yes Vital Signs Reviewed: Yes - Carlton Coma Scale Best Eye Response: 4 - Spontaneous Best Motor Response: 6 - Obeys Commands Best Verbal Response: 5 - Oriented Coma Scale Total: 15 Procedures - Sedation Patient Received Moderate/Deep Sedation with Procedure: No Diagnostics - Laboratory Result Diagrams: 09/18/19 13:57 09/18/19 13:57 Lab Statement: Any lab studies that have been ordered have been reviewed, and results considered in the medical decision making process. - CT Brain CT CT Interpretation Completed By: Radiologist Summary of CT Findings: Brain CT IMPRESSION: NO ACUTE INTRACRANIAL PATHOLOGY. Reviewed by Dr. Mayberry. - EKG 14:17 Cardiac Rate: NL - 71 BPM EKG Rhythm: Sinus Rhythm ST Segment: Normal Ectopy: None Summary of EKG Findings: EKG at 14:17 shows normal sinus rhythm with 71 BPM, no ischemic changes. Dr. Mayberry has reviewed and interpreted this EKG. 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: Both Correctly Best Gaze (Only Horizontal Eye Movement): Normal Visual Field Testing: No Visual Loss Facial Paresis-Pt to Smile & Close Eyes or Grimace Symmetry: Partial Paralysis Motor Function - Right Arm: No Drift-Holds 10 Seconds Motor Function - Left Arm: No Drift-Holds 10 Seconds Motor Function - Right Leg: No Drift-Holds 10 Seconds Motor Function - Left Leg: No Drift-Holds 10 Seconds Limb Ataxia-Must be out of Proportion to Weakness Present: Absent Sensory (Use Pinprick to Test Arms/Legs/Trunk/Face): Normal Best Language (Describe Picture, Name Items): No Aphasia Dysarthria (Read Several Words): Normal Extinction and Inattention: No Abnormality Total Score: 2 Course/Dx - Course Course Of Treatment: Patient is a 59 y/o F presenting to the ED for a chief complaint of neurological deficit that began at approximately 12:45 on . Patient reports that upon waking up on 09/18/19, she had tearing of the left eye. Later in the day she had lunch with her and while eating, she noticed she had left sided facial weakness and left facial droop. She also reports having soreness in the left arm. For the last few days, patient notes having a headache, but denies a headache on 09/18/19. Patient denies changes in vision or weakness in any extremity. About 2 weeks ago, patient was seen for chest pain and had a workup that showed a possible ulcer, so patient was placed on Carafate. A history of Peres's palsy is denied. On exam, GCS: 15, NIH Stroke Scale: 2 for left facial weakness. In the ED course, patient was given Solu- Medrol 125 mg IV, Valtrex 1000 mg PO, and IV fluids. EKG at 14:17 shows normal sinus rhythm with 71 BPM, no ischemic changes. Brain CT IMPRESSION: NO ACUTE INTRACRANIAL PATHOLOGY. All other abnormal lab results are not pertinent to current cc. Patient will be discharged with a diagnosis of Peres's Palsy. Follow up with PCP in 2-3 days and neurology within 1 week. - Diagnoses Provider Diagnoses: Peres's palsy - Physician Notifications Discussed Care Of Patient With: Danilo Davis - At 13:33, Dr. Danilo Davis will consult on the patient. At 14:00, Dr. Danilo Davis recommends the patient be given Valtrex. Time Discussed With Above Provider: 13:33 Discharge ED - Sign-Out/Discharge Documenting (check all that apply): Patient Departure - Discharge - Discharge Plan Condition: Stable Disposition: HOME Prescriptions: Esomeprazole Magnesium [Nexium] 40 mg PO DAILY #320 mg predniSONE 20 mg TAB [Deltasone 20 MG TAB*] 60 mg PO DAILY 7 Days #21 tab ValACYclovir (*) [Valtrex 1 GM(*)] 1 gm PO BID 7 Days #14 tab Patient Education Materials: Peres Palsy (ED) Referrals: Sonu Atkins MD [Medical Doctor] - 7 Days Care [facility] [Outside] - 2 Days Additional Instructions: RETURN TO THE EMERGENCY DEPARTMENT FOR CHANGING OR WORSENING SYMPTOMS. Follow up with your primary care physician in 2-3 days. 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 Apply Lacri-lube to the left eye as directed before bedtime. Follow up with neurology within 1 week or first available appointment. - Billing Disposition and Condition Condition: STABLE Disposition: Home - Attestation Statements Document Initiated by Kat: Yes Documenting Scribe: Nita Mcneal Provider For Whom Kat is Documenting (Include Credential): Barron Mayberry DO Scribe Attestation: Nita Soler scribed for Barron Mayberry DO on 09/18/19 at 1543. Scribe Documentation Reviewed: Yes Provider Attestation: The documentation as recorded by the Nita wilson accurately reflects the service I personally performed and the decisions made by , Barron Mayberry DO Status of Scribe Document: Viewed
[2019-09-18 14:15] LABS: ABS Eosinophils 0.3 10^3/ul (0-0.6); ABS Lymphocytes 1.1 10^3/ul (1.0-4.8); ABS Monocytes 0.5 10^3/ul (0-0.8); ABS Neutrophils 5.6 10^3/ul (1.5-7.7); Eosinophil % 3.8 %; Hematocrit 40 % (35-47); Hemoglobin 13.7 g/dL (12.0-16.0); Lymphocyte % 15.1 %; Mean Corpuscular HGB Conc 34 g/dL (31-36); Mean Corpuscular Hemoglobin 31 pg (27-31); Mean Corpuscular Volume 90 fL (80-97); Mean Platelet Volume 8.5 fL (7.4-10.4); Platelet Count 255 10^3/uL (150-450); Red Blood Count 4.47 10^6 /uL (3.70-4.87); Red Cell Distribution Width 13 % (10-15); White Blood Count 7.6 10^3/uL (3.5-10.8)
[2019-09-18] MEDS ORDERED: methylPREDNISolone 125 MG* 2 ML VIAL IV ONE (14:22)
[2019-09-18] MEDS ORDERED: NS 0.9% 1000 ML** 1,000 ML IV ONE (14:22)
[2019-09-18 14:25] LABS: INR 1.01 (0.82-1.09)
[2019-09-18 14:34] LABS: Albumin 4.4 g/dL (3.2-5.2); Albumin/Globulin Ratio 1.4 (1-3); BUN/Creatinine Ratio 12.3 (8-20); C Reactive Protein 1.33 mg/L (<8.01); Calcium 9.9 mg/dL (8.6-10.3); EGFR African American 54.2 (>60); EGFR Non-African American 44.8 (>60); Globulin 3.1 g/dL (2-4); Potassium 4.3 mmol/L (3.5-5.0); Total Bilirubin 0.6 mg/dL (0.2-1.0); Total Protein 7.5 g/dL (6.4-8.9)
--- NOTE | 2019-09-18 14:35 | CONSULT ---
Consult Consult: Neurology Inpatient Consult Note Date of service: 09/18/19 Reason for consult: Neurology was consulted by Barron Mayberry to assess the patient for stroke or Peers's palsy. The history was obtained by the patient. Chief complaint: Left facial droop History of Present Illness: Mrs. 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 The patient was in normal state of health before she went to bed last night 09/16 at 2100. She woke up this morning at 05:30 AM and noticed excessive tearing of the left eye. She also had pain behind her left ear three days ago. She denied any rash. She looked at herself in the mirror and noticed a left facial droop. She showed her daughter who is a nurse and was advised to call EMS. The patient denied any facial numbness, focal weakness, or paresthesia. She denied any headache. She has some neck pain and left shoulder pain. She had pain and weakness in the left shoulder two months ago. She was encouraged to follow-up with her PCP regarding the chronic shoulder issues. 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 Family History: Mother had a stroke at age 69. She was a heavy smoker. Social History: * Levothyroxine TAB* [Synthorid 112 MCG TAB*] 88 mcg PO DAILY 05/15/12 [History Confirmed 09/18/19] Albuterol HFA INHALER* [Ventolin HFA Inhaler*] 2 puff INH Q6H PRN 11/03/17 [ History Confirmed 09/18/19] Atorvastatin* [Lipitor 20 MG*] 20 mg PO DAILY 11/03/17 [History Confirmed ] Cholecalciferol (Vitamin D3) [Vitamin D3] 1,000 unit PO DAILY 11/03/17 [History Confirmed 09/18/19] Losartan Potassium [Cozaar] 50 mg PO DAILY 11/03/17 [History Confirmed 09/18/19] Thyroid,Pork [[place] Thyroid] 30 mg PO DAILY 11/03/17 [History Confirmed ] Diclofenac 1% GEL (NF) [Voltaren 1% GEL (NF)] 1 applic TOPICAL BID PRN 01/21/18 [History Confirmed 09/18/19] Acetaminophen TAB* [Tylenol TAB*] 650 mg PO Q4H PRN 09/18/19 [History Confirmed 09/18/19] Docusate CAP* [Colace Cap*] 200 mg PO DAILY 09/18/19 [History Confirmed 09/18/19 ] Ibuprofen TAB* [Advil TAB*] 400 - 600 mg PO TID PRN 09/18/19 [History Confirmed 09/18/19] Multivitamins/Minerals TAB* [Theragran/minerals TAB*] 1 tab PO DAILY 09/18/19 [ History Confirmed 09/18/19] Nystatin TOP POWDER* 1 applic TOPICAL BID 09/18/19 [History Confirmed 09/18/19] Oseltamivir CAP* [Tamiflu CAP*] 75 mg PO BID 09/18/19 [History Confirmed ] Sucralfate TAB* [Carafate*] 1 gm PO TID 09/18/19 [History Confirmed 09/18/19] Allergies Sulfa (Sulfonamide Antibiotics) Allergy (Intermediate, Verified 09/13/18 08:16) See Comment ringing in ears, itchy sulfamethoxazole [From Bactrim] Allergy (Intermediate, Verified 09/13/18 08:16) See Comment ringing in ears, itchy trimethoprim [From Bactrim] Allergy (Intermediate, Verified 09/13/18 08:16) See Comment ringing in ears, itchy ibuprofen Adverse Reaction (Severe, Verified 09/13/18 08:16) See Comment pt donated a kidney, has only right kidney remaining Review of Systems: A 14-point ROS was obtained and otherwise negative except for what was mentioned in the HPI. Physical Exam: Vitals: Vital Signs - 12 hr Temp Pulse Resp BP Pulse Ox 09/18/19 13:26 99.9 F 82 16 153/116 94 General: well nourished, well developed. Alert, cooperative, no apparent distress, appears stated age. Head: normocephalic, without obvious abnormality Eyes: conjunctivae/corneas clear Neck: supple, symmetrical. No carotid bruit. No lymphadenopathy. Lungs: clear to auscultation bilaterally, non-labored CV: regular rhythm, S1, S2 normal, radial pulses palpable Extremities: normal range of motion with no cyanosis. Skin: no skin lesions or lacerations Psych: affect-broad and normal mood. Easy to establish rapport. Neurological examination: Mental status: awake; alert and oriented to person, place, time, & general circumstances; speech & language including expression, naming, repetition, & comprehension was assessed and found to be normal. Cranial nerves: I: not tested II, III, IV, : normal confrontation B/L, Pupils midrange and reactive to light , normal consensual response; extraocular muscles are intact; no ptosis; no conjugate or asymmetrical nystagmus V /2/3: sensation is intact on forehead, cheeks, and jaw region VII: lower motor neuron facial weakness on the left. This includes inability to bury the eyelashes, weakness to forehead frowning, she was able to close her eyes, and mild flattening of the nasolabial fold. House-Brackmann's score of 3- 4. VIII: able to hear throughout the history process IX & X: symmetric palatal elevation XI: normal strength against resistance XII: tongue is symmetrical & midline with no atrophy or fasciculations Motor (R/L): no abnormal movements, no pronator drift. Normal bulk and tone throughout. No fasciculations. Neck extension 5. Shoulder ROM is full. Shoulder abduction 5/5. Elbow flexion 5/5, extension 5/5. Wrist flexion 5/5, extension 5/5. Finger flexion 5/5, extension 5/5, abduction 5/5. Hip flexion 5/5, abduction 5/5. Knee flexion 5/5, extension 5/5. Ankle dorsiflexion 5/5, plantarflexion 5/5. Great toe extension 5/5. Reflexes R L Brachioradialis 2+ 2+ Biceps 2+ 2+ Triceps 2+ 2+ Patella 2+ 2+ Ankle trace trace Plantar flexor flexor Sensation is intact to light touch throughout. Normal vibration and proprioception at the great toes. Coordination: normal finger to nose and rapid alternating movements. Gait & Station: narrow based; normal stance and gait. No ataxia. Assessment: 1. 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 She has no other weakness or sensory abnormalities outside the 7th cranial nerve. Weakness of forhead frowning, left eye closure, tongue numbness, platysma muscle weakness and left sided ear pain are all consistent with the diagnosis. House-Brackmann's score of 3-4. She has no evidence of rash. Recommendations: - Prednisone 60 mg daily for 7 days. Please make sure she is on a PPI while on steroids. She is at risk of worsening GERD with steroids therapy. She is aware of the risk. - Valacyclovir 1,000 mg by mouth every 8 hours for 7 days. The cut off eGFR before it goes to every 12 hours is 49. Please adjust the dose depending on her eGFR from today. I discussed this with pharmacy. - ADDED MAMTA, B12, and Lyme screen to the labs - She does have adequate eye closure. If her eye closure becomes weaker the next few days, implement eye protection measures. Eye drops and lacrilube in the left eye before bedtime. - She was instructed to come back to the ED if she develops headache, rash, swallowing difficulties or weakness in her extremities. I will sign off. Discussed the above recommendations with the bedside nurse and Dr. Mayberry. Danilo Davis MD Date: 09/18/19 Time: 5922
[2019-09-18 14:36] LABS: Troponin I 0.01 ng/mL (<0.03)
[2019-09-18 15:02] LABS: Urine Appearance Clear; Urine Bilirubin Negative (Negative); Urine Blood Negative (Negative); Urine Color Yellow; Urine Glucose Negative (Negative); Urine Ketones Negative (Negative); Urine Nitrite Negative (Negative); Urine Protein Negative (Negative); Urine Specific Gravity 1.011 (1.010-1.030); Urine Urobilinogen Negative (Negative)
[2019-09-18] MEDS ORDERED: ValACYclovir (*) 1 GM TAB PO ONE (15:15)
[2019-09-18 15:32] LABS: Erythrocyte Sed Rate 11 mm/Hr (0-29)
[2019-09-18 16:44] VITALS: BP 171/109
== END 2019-09-18 16:26 | disposition home or self-care (01) ==
LOC: ED 13:20
DX: G51.0 Bell's palsy (principal); R51 Headache; R53.1 Weakness; E03.9 Hypothyroidism, unspecified; I25.10 Atherosclerotic heart disease of native coronary artery without angina pectoris; I10 Essential (primary) hypertension; E78.00 Pure hypercholesterolemia, unspecified; Z88.2 Allergy status to sulfonamides; Z79.890 Hormone replacement therapy; Z79.899 Other long term (current) drug therapy; Z90.5 Acquired absence of kidney
CPT/HCPCS: 36415; 70450; 80053; 81003; 82164; 82607; 83605; 84484; 85025; 85610; 85652; 86140; 86618; 93005; 96361; 96374; 99283; A9270-GY; J2930